=== PATIENT | female | born 2000 | race Caucasian/White ===

== ENCOUNTER 2024-03-12 16:57 | Emergency (ER) | payer MEDICAID, SELFPAY ==
--- NOTE | ~2024-03-12 | US_ITS ---
CLINICAL HISTORY: RUQ pain, GB, CBD U/S abdomen limited Comparison: None Findings: Normal gallbladder with no stones or gallbladder wall thickening. No intrahepatic bile duct dilatation. Common bile duct 2 mm. Impression: 1. Normal gallbladder without bile duct dilatation. This document has been electronically signed by: Rickey Huston MD on 03/13/2024 00:54:48
[2024-03-12 17:11] VITALS: BP 108/62; PULSE 88; RESP 16; TEMP 36.3; O2SAT 97; BMI 25.3
--- NOTE | 2024-03-12 17:13 | ED_ITS ---
HPI - General Adult General Chief complaint: General Medical Stated complaint: N/V/D Time Seen by Provider: 03/12/24 20:23 Source: patient Limitations: language barrier History of Present Illness ED Provider: Linda Silva PA-C HPI narrative: 23-year-old female presents with nausea vomiting diarrhea since earlier today. Associated abdominal discomfort that is primarily on the right side. Patient states when she eats, it causes her to become nauseous and she vomits. No sick contacts with same symptoms. No fever. Related Data Previous Rx's ?Medication ?Instructions ?Recorded dicyclomine 20 mg tablet 20 mg PO BID PRN diarrhea #7 tabs 03/13/24 ondansetron HCl 4 mg tablet 4 mg PO Q8H PRN nausea and 03/13/24 vomiting #10 tabs Allergies Allergy/AdvReac Type Severity Reaction Status Date / Time No Known Allergies Allergy Verified 03/12/24 17:14 Review of Systems 2 Review of Systems: Yes all other systems are reviewed and are negative Constitutional: Constitutional: Denies fatigue and Denies fever(s) Cardiovascular: Cardiovascular: Denies chest pain and Denies dyspnea Respiratory: Respiratory: Denies cough and Denies dyspnea Gastrointestinal: Gastrointestinal: Reports abdominal pain, Reports diarrhea, Reports nausea and Reports vomiting Endocrine: Endocrine: Denies fatigue PMF Past Medical History Attestation statement: The following information was validated with the patient. Social History Social History Advance Directives: No Advance Directives Information Provided: No Physical Exam ED Vital Signs: Vital Signs - 24 hr 03/12/24 17:11 03/12/24 22:08 Temperature 97.3 F 97.8 F Pulse Rate 88 77 Respiratory Rate 16 18 Blood Pressure 108/62 93/55 L Pulse Oximetry 97 100 Oxygen Delivery Method Room Air Room Air BMI result Body Mass Index 25.3 Const Other: Alert Orientation/consciousness: patient oriented x3 Resp Effort & Inspection: normal respiratory effort Cardio Other: Normal peripheral perfusion GI Other: Abdomen is soft, nondistended, mild tenderness over right side of abdomen without guarding Skin Other: Warm dry no rash Neuro General: patient oriented x3, gait normal, no focal motor deficits and CN's II- XI intact bilaterally Psych Other: Cooperative Course Course Course Narrative: RME, this is a rapid medical exam performed by Chidi Pitt please refer to primary provider for complete H&P- 23-year-old female presents for evaluation abdominal pain, nausea vomiting and fevers. The patient's daughter has similar symptoms. Plan for viral swabs Medications Administered Discontinued Medications Generic Name Dose Route Start Last Admin Trade Name Hernan PRN Reason Stop Dose Admin Sodium Chloride 500 mls @ 500 mls/hr 03/12/24 21:28 03/12/24 23:22 Ns IV 03/12/24 22:27 Infused .Q1H ONE Infusion Morphine Sulfate 4 mg 03/12/24 21:28 03/12/24 21:41 Morphine Sulfate 4 Mg/Ml Cartridge IVPUSH 03/12/24 21:29 4 mg ONCE ONE Administration Protocol Morphine Sulfate 4 mg 03/13/24 00:30 03/13/24 00:45 Morphine Sulfate 4 Mg/Ml Cartridge IVPUSH 03/13/24 00:31 4 mg ONCE ONE Administration Protocol Ondansetron HCl 4 mg 03/12/24 21:28 03/12/24 21:41 Ondansetron Hcl 4 Mg/2 Ml Vial IVPUSH 03/12/24 21:29 4 mg ONCE ONE Administration Medical Decision Making Medical Decision Making MDM Narrative: 23-year-old female presents with nausea vomiting diarrhea since earlier today. Associated abdominal discomfort that is primarily on the right side. Patient states when she eats, it causes her to become nauseous and she vomits. No sick contacts with same symptoms. No fever. Denies recent hospitalization, travel or use of antibiotics. No known issues History: Per patient I have considered the following differential diagnoses: Biliary colic, cholecystitis, gastritis, pancreatitis, viral gastroenteritis , C diff, traveler's diarrhea Plan: This is likely viral gastroenteritis given such illness has been prevalent within the community. However, she is having abdominal discomfort that is primarily right-sided. Given postprandial symptoms, I am considering underlying biliary pathology, and her LFTs are elevated. We will be obtaining an ultrasound of the right upper quadrant. Giving fluid morphine and Zofran. Patient has no risk factors for C diff or traveler's diarrhea I have independently reviewed the following tests: Labs: No leukocytosis, not anemic, T bili normal, AST ALT and alk phos are all elevated, not , viral panel negative Ultrasound right upper quadrant:Findings: Normal gallbladder with no stones or gallbladder wall thickening. No intrahepatic bile duct dilatation. Common bile duct 2 mm. Impression: 1. Normal gallbladder without bile duct dilatation. This document has been electronically signed by: Rickey Huston MD on 03/13/2024 00:54:48 Lab Data 03/12/24 18:33 03/12/24 18:33 Labs: Lab Results 03/12/24 03/12/24 Range/Units 17:20 18:33 WBC 7.0 (4.8-10.8) X10*3/uL RBC 4.63 (4.20-5.50) X10*6/uL Hgb 12.9 (12.0-16.0) g/dl Hct 39.5 (37.0-47.0) % MCV 85.3 (80.0-98.0) fL MCH 27.9 (27.0-33.0) pg MCHC 32.7 (31.0-35.0) g/dl RDW 13.4 (11.0-16.0) % Plt Count 220 (160-400) X10*3/uL MPV 10.6 (9.4-12.3) fL Immature Gran % (Auto) Cancelled Neut % (Auto) Cancelled Lymph % (Auto) Cancelled [place] % (Auto) Cancelled Eos % (Auto) Cancelled Baso % (Auto) Cancelled Lymph # (Auto) Cancelled [place] # (Auto) Cancelled Eos # (Auto) Cancelled Baso # (Auto) Cancelled Abs Immat Gran (auto) Cancelled Absolute Neuts (auto) Cancelled Absolute Nucleated RBC 0.000 (0.0-0.012) X10*3/uL Nucleated RBC % (auto) 0.0 (0.0-0.2) /100WBC Neutrophils % (Manual) 57 (45-73) % Band Neutrophils % 5 (3-5) % Lymphocytes % (Manual) 18 L (20-40) % Atypical Lymphs % (Man) 8 H (0-6) % Monocytes % (Manual) 10 (2-11) % Eosinophils % (Manual) 1 (0-4) % Basophils % (Manual) 1 (0-2) % Abs Neuts (Manual) 4.3 (2.0-8.3) X10*3/uL Lymphocytes # (Manual) 1.3 (1.2-4.9) X10*3/uL Atyp Lymphs # (Manual) 0.6 x10*3/uL Monocytes # (Manual) 0.7 (0.1-1.2) X10*3/uL Eosinophils # (Manual) 0.1 (0.0-0.4) X10*3/uL Basophils # (Manual) 0.1 (0.0-0.2) X10*3/uL [place] Cells PRESENT Platelet Estimate NORMAL (NORMAL) Plt Morphology Comment NORMAL RBC Morphology NOTED Smear Tech's Comments MANUAL DIFF Sodium 138 (135-145) mmol/L Potassium 4.5 (3.3-5.1) mmol/L Chloride 105 (96-108) mmol/L Carbon Dioxide 26 (22-29) mmol/L Anion Gap 12 (12-20) BUN 14 (9-16) mg/dL Creatinine 0.69 (0.5-1.4) mg/dL Estim Creat Clear Calc 114.7 Estimated GFR > 60 Random Glucose 107 (60-115) mg/dL Calcium 9.4 (8.4-10.2) mg/dL Total Bilirubin 0.5 (0.0-1.0) mg/dL AST 211 H (5-31) U/L ALT 308 H (0-31) U/L Alkaline Phosphatase 130 H (39-117) U/L Total Protein 8.6 H (6.5-8.0) g/dL Albumin 4.2 (3.5-5.0) g/dL Lipase 34 (8-78) U/L Beta HCG, Quant < 2 mIU/mL Urine Color Dark Yellow Urine Appearance Clear Urine pH >= 9.0 (5.0-9.0) Ur Specific [place] >= 1.030 H (1.005-1.025) Urine Protein 100 (2+) H (Neg-Trace) mg/dL Urine Glucose (UA) Negative (Negative) mg/dL Urine Ketones Negative (Negative) mg/dL Urine Blood Negative (Negative) Urine Nitrite Negative (Negative) Ur Leukocyte Esterase Negative (Negative) Urine RBC 0-2 (0-2) /HPF Urine WBC 0-5 (0-5) /HPF Ur Squamous Epith Cells 11-20 (0-2) /HPF Urine Bacteria 1+ (None Seen) Hyaline Casts 0-2 (0-2) /LPF Influenza Type A (PCR) NEGATIVE (Negative) Influenza Type B (PCR) NEGATIVE (Negative) RSV RNA Qual (PCR) NEGATIVE (Negative) SARS-CoV-2 RNA (RT-PCR) NEGATIVE (Negative) Discharge Plan Discharge Clinical Impression: Gastroenteritis, Transaminitis Patient Disposition: Home, Self-Care Instructions: Gastroenteritis (ED) Additional Instructions: You are being treated for viral gastroenteritis. See home care instructions. Uses Zofran as needed for nausea, use the dicyclomine as needed for diarrhea. The ultrasound of the abdomen was normal. The viral panel was negative, you were noted to have some elevation and some a your liver function tests. You need to follow up with your primary care provider for repeat labs, they could be elevated secondary to the virus that is causing your symptoms. Call tomorrow to make an appointment. Prescriptions: New ondansetron HCl 4 mg tablet 4 mg PO Q8H PRN (Reason: nausea and vomiting) Qty: 10 0RF dicyclomine 20 mg tablet 20 mg PO BID PRN (Reason: diarrhea) Qty: 7 0RF Print Language: Czech
[2024-03-12 18:03] LABS: Influenza A PCR NEGATIVE (Negative); Influenza B PCR NEGATIVE (Negative); Resp Syncy Virus RNA Qual PCR NEGATIVE (Negative); SARS COV2 PCR INHOUSE NEGATIVE (Negative)
[2024-03-12 18:41] LABS: Appearance Urine Clear; Color Urine Dark Yellow; Glucose Urine UA Negative (Negative); Hematocrit 39.5 % (37.0-47.0); Hemoglobin 12.9 g/dl (12.0-16.0); Leukocyte Esterase Urine Negative (Negative); Mean Corpuscular HGB Conc 32.7 g/dl (31.0-35.0); Mean Corpuscular Hemoglobin 27.9 pg (27.0-33.0); Mean Corpuscular Volume 85.3 fL (80.0-98.0); Mean Platelet Volume 10.6 fL (9.4-12.3); Nitrite Urine Negative (Negative); PH >= 9.0 (5.0-9.0); Platelet Count 220 X10*3/uL (160-400); Red Blood Count 4.63 X10*6/uL (4.20-5.50); Red Cell Distribution Width 13.4 % (11.0-16.0); Specific Gravity - Urine >= 1.030 (1.005-1.025); UMIC TRIGGER UACC YES; Urine Blood Negative (Negative); Urine Ketones Negative (Negative); Urine Protein 100 (2+) mg/dL (Neg-Trace)
[2024-03-12 18:44] LABS: Bacteria Urine 1+ (None Seen); Hyaline Casts Urine 0-2 /LPF (0-2); RBC Urine 0-2 /HPF (0-2); WBC Urine 0-5 /HPF (0-5)
[2024-03-12 19:05] LABS: SLIDE REVIEW MANUAL DIFF
[2024-03-12 19:06] LABS: Atypical Lymph Absolute Manual 0.6 x10*3/uL; Atypical Lymphs Percent Manual 8 % (0-6); Band Neutrophils Percent 5 % (3-5); Basophils Abs Manual 0.1 X10*3/uL (0.0-0.2); Basophils Percent Manual 1 % (0-2); Eosinophils Absolute Manual 0.1 X10*3/uL (0.0-0.4); Eosinophils Percent Manual 1 % (0-4); Lymphocytes Absolute Manual 1.3 X10*3/uL (1.2-4.9); Lymphocytes Percent Manual 18 % (20-40); Monocytes Absolute Manual 0.7 X10*3/uL (0.1-1.2); Monocytes Percent Manual 10 % (2-11); Neutrophils Absolute Manual 4.3 X10*3/uL (2.0-8.3); Neutrophils Percent Manual 57 % (45-73); RBC Morphology NOTED
[2024-03-12 19:07] LABS: Platelet Estimate NORMAL (NORMAL); Platelet Morphology Comment NORMAL; Smudge Cells PRESENT
[2024-03-12 19:20] LABS: Alanine Aminotransferase 308 U/L (0-31); Albumin Level 4.2 g/dL (3.5-5.0); Alkaline Phosphatase 130 U/L (39-117); Anion Gap 12 (12-20); Aspartate Amino Transferase 211 U/L (5-31); Bilirubin Total 0.5 mg/dL (0.0-1.0); Blood Urea Nitrogen 14 mg/dL (9-16); Calcium 9.4 mg/dL (8.4-10.2); Carbon Dioxide 26 mmol/L (22-29); Chloride 105 mmol/L (96-108); Creatinine Clr Calc Pharmacy 114.7; Estimated Glomerular Filt Rate > 60; Glucose Random 107 mg/dL (60-115); HCG Quantitative < 2 mIU/mL; Lipase 34 U/L (8-78); Potassium 4.5 mmol/L (3.3-5.1); Sodium 138 mmol/L (135-145); Total Protein 8.6 g/dL (6.5-8.0)
[2024-03-12] MEDS: ondansetron HCL 4 MG/2 ML VIAL IVPUSH (21:41)
[2024-03-12] MEDS: Morphine Sulfate 4 MG/ML CARTRIDGE IVPUSH (21:41)
[2024-03-12] MEDS: 0.9 % Sodium Chloride 500 ML IV (21:45)
[2024-03-12 22:08] VITALS: BP 93/55; PULSE 77; RESP 18; TEMP 36.6; O2SAT 100
[2024-03-13] MEDS: Morphine Sulfate 4 MG/ML CARTRIDGE IVPUSH (00:45)
--- NOTE | 2024-03-13 01:42 | PC.NURSE ---
Took over care from JUDY Cerda at 00:54am, Reviewed discharge instructions with pt. pt verbalized understanding, no sign of distress upon discharge.
[2024-03-13 01:43] VITALS: BP 99/60; PULSE 59; RESP 20; TEMP 37; O2SAT 99
[2024-03-13 01:44] VITALS: BP 99/60; PULSE 59; RESP 20; TEMP 37; O2SAT 99
== END 2024-03-13 01:45 | disposition home or self-care (01) ==
PROVIDERS: Physician Assistant; Emergency Provider Emergency Medicine
DX: K52.9 Noninfective gastroenteritis and colitis, unspecified (principal); R74.01 Elevation of levels of liver transaminase levels; R11.2 Nausea with vomiting, unspecified; R10.9 Unspecified abdominal pain; Z03.818 Encounter for observation for suspected exposure to other biological agents ruled out
CPT/HCPCS: 0241U; 36415; 76705; 80053; 81001; 83690; 84702; 85007; 85025; 85027; 96361; 96374; 96375; 96376; 99284; J2270; J2405

== ENCOUNTER → 2024-03-12 21:28 | Outpatient (BNV) | payer MEDICAID, SELFPAY | PROVIDERS: Emergency Provider Emergency Medicine; Visit Provider Radiology Diagnostic Radiology | DX: R10.11 Right upper quadrant pain (principal) | CPT/HCPCS: 76705 ==

== ENCOUNTER 2024-04-09 15:10 | Emergency (ER) | payer MEDICAID, SELFPAY ==
--- NOTE | ~2024-04-09 | XR_ITS ---
CLINICAL HISTORY: pain 1 view abdomen Comparison: None Findings: No pneumoperitoneum or pneumatosis. No abnormal calcifications. No acute fractures. IMPRESSION: The bowel gas pattern is within normal limits This document has been electronically signed by: Dae Gonzalez MD on 04/09/2024 18:07:54
[2024-04-09 15:52] VITALS: BP 121/81; BP 124/85; PULSE 62; PULSE 66; RESP 19; TEMP 36.8; O2SAT 98; O2SAT 99; BMI 24.4
[2024-04-09 16:34] LABS: MANUAL DIFF FLAG NO
[2024-04-09 16:35] LABS: Basophils Percent Auto 0.5 % (0-2); Eosinophils Percent Auto 0.5 % (0-4); Hematocrit 39.8 % (37.0-47.0); Hemoglobin 13.6 g/dl (12.0-16.0); Imm Gran Abs Auto 0.03 X10*3/uL (0.00-0.03); Imm Gran Pct Auto 0.4 % (0.0-0.4); Lymphocytes Absolute Auto 1.3 X10*3/uL (1.2-4.9); Lymphocytes Percent Auto 17.1 % (20-40); Mean Corpuscular HGB Conc 34.2 g/dl (31.0-35.0); Mean Corpuscular Hemoglobin 28.5 pg (27.0-33.0); Mean Corpuscular Volume 83.3 fL (80.0-98.0); Mean Platelet Volume 9.9 fL (9.4-12.3); Monocytes Absolute Auto 0.6 X10*3/uL (0.1-1.2); Monocytes Percent Auto 7.2 % (2-11); Neutrophils Absolute Auto 5.6 x10*3/uL (2.0-8.3); Neutrophils Percent Auto 74.3 % (45-73); Platelet Count 243 X10*3/uL (160-400); Red Blood Count 4.78 X10*6/uL (4.20-5.50); Red Cell Distribution Width 12.7 % (11.0-16.0); White Blood Count 7.6 X10*3/uL (4.8-10.8)
[2024-04-09] MEDS: 0.9 % Sodium Chloride 1,000 ML 999 ML IV (16:35)
[2024-04-09] MEDS: ondansetron HCL 4 MG/2 ML VIAL IVPUSH ×2 (16:35→19:22)
[2024-04-09 16:43] LABS: Appearance Urine Clear; Color Urine Yellow; Glucose Urine UA Negative (Negative); Leukocyte Esterase Urine Negative (Negative); Nitrite Urine Negative (Negative); PH >= 9.0 (5.0-9.0); Specific Gravity - Urine 1.025 (1.005-1.025); UMIC TRIGGER UACC YES; Urine Blood Negative (Negative); Urine Ketones 15 mg/dL (Negative); Urine Protein 30 (1+) mg/dL (Neg-Trace)
[2024-04-09 16:46] LABS: Bacteria Urine None Seen (None Seen); Hyaline Casts Urine 0-2 /LPF (0-2); RBC Urine 0-2 /HPF (0-2); Squamous Epithelial Cell Urine 0-2 /HPF (0-2); WBC Urine 0-5 /HPF (0-5)
[2024-04-09 16:47] LABS: Anion Gap 13 (12-20); Blood Urea Nitrogen 10 mg/dL (9-16); Calcium 9.7 mg/dL (8.4-10.2); Carbon Dioxide 26 mmol/L (22-29); Chloride 103 mmol/L (96-108); Creatinine Clr Calc Pharmacy 100.5; Estimated Glomerular Filt Rate > 60; Glucose Fasting 105 mg/dL (60-99); Potassium 4.2 mmol/L (3.3-5.1); Sodium 138 mmol/L (135-145)
[2024-04-09 17:48] VITALS: BP 122/80; PULSE 69; RESP 19; TEMP 37.1; O2SAT 99
[2024-04-09 17:48] LABS: HCG Quantitative < 2 mIU/mL
[2024-04-09] MEDS: Ketorolac Tromethamine 15 MG/ML VIAL IVPUSH (18:12)
[2024-04-09 18:13] LABS: Influenza A PCR NEGATIVE (Negative); Influenza B PCR NEGATIVE (Negative); Resp Syncy Virus RNA Qual PCR NEGATIVE (Negative); SARS COV2 PCR INHOUSE NEGATIVE (Negative)
--- NOTE | 2024-04-09 18:23 | PC.NURSE ---
Pt has had no vomiting at this time; reports 10/10 upper abd pain; Toradol gv per orders; will reassess per protocol/PRN
--- OUTSIDE RECORDS SUMMARY | 2024-04-09 19:17 | XMS_ITS | Encounter Summary ---
Author Organization [employer] Address [address] [facility] 7 [place] [address] Care Team Providers Care Crutching Contractor Name Role Phone Unavailable Primary Care Provider Unavailabl e Reason for Visit * Reason Onset Date Comments chartprep 04/09/2024 Encounter Details Date Type Department Care Team (Late st Contact Info) Description 04/09/2024 Telephone [facility] MED [facility] PEDS [address] [place] [address] Tiffani Lopez MA chartprep Social History Tobacco Use Types Packs/Day Years Used Date Smoking Tobacco: Never Assessed Comments Unknown Sex and Gender Information Value Date Recorded Sex Assigned at Not on file Legal Sex Female 4:38 PM EDT Gender Identity Not on file Sexual Orientation Not on file documented as of this encounter Miscellaneous Notes * Telephone Encounter - Tiffani Lopez MA - 04/09/2024 10:30 AM EST Chart Prep Labs: not applicable Images: done Vaccines due: yes Covid, tdap, hep b, flu, and hpv. Referrals: n/a Screenings: pap smear , STI screening, hiv Overdue care gaps: Sbirt, SDOH, PHQ-9, Oral Health, LEAH-7 documented in this encounter Plan of Treatment Upcoming Encounters Date Type Department Care Team (Late st Contact Info) Description 04/15/2024 2:00 PM EST Office Visit [facility] MEDICINE [address] [place] [address] Melba Tamayo NP [address] [place] [address] documented as of this encounter Visit Diagnoses Not on filedocumented in this encounter
--- OUTSIDE RECORDS SUMMARY | 2024-04-09 19:17 | XMS_ITS | Encounter Summary ---
Author Organization [employer] Address [address] [facility] 7 [place] [address] Care Team Providers Care Job Training Supervisor Name Role Phone Unavailable Primary Care Provider Unavailabl e Reason for Visit * Reason Comments Pre-visit Planning SDOH will need to be completed in office. Encounter Details Date Type Department Care Team (Late Contact Info) Description 04/08/2024 Patient Outreach [facility] MED & PEDS [address] [place], [place] [id number] Melba Tamayo NP [address] [place] [address] Pre-visit Planning (SDOH will need to be completed in office. ) Social History Tobacco Use Types Packs/Day Years Used Date Smoking Tobacco: Never Assessed Comments Unknown Sex and Gender Information Value Date Recorded Sex Assigned at Not on file Legal Sex Female 4:38 PM EDT Gender Identity Not on file Sexual Orientation Not on file documented as of this encounter Progress Notes * Nadja Jean-Baptiste - 04/08/2024 2:43 PM EST CC [address] placed successful outbound call to patient for pre-visit planning. Patient name and confirmed. Patient confirms appt date and time, and has transportation arrangements. Biggest concern for appointment at this time is no concerns. Appropriate screenings completed in anticipation ofappointment. documented in this encounter Plan of Treatment Upcoming Encounters Date Type Department Care Team ([facility] Contact Info) Description 04/15/2024 2:00 PM EST Office Visit [facility] MEDICINE [address] [place] [address] Melba Tamayo NP [address] [place] [address] documented as of this encounter Visit Diagnoses Not on filedocumented in this encounter
--- OUTSIDE RECORDS SUMMARY | 2024-04-09 19:17 | XMS_ITS | Clinical Summary ---
Author Organization [employer] Address [address] [facility] [address] [place] [address] Care Team Providers Care Motor Tester Name Role Phone Unavailable Primary Care Provider Unavailabl e Encounters Date Type Department Care Team Description 04/09/2024 Telephone [facility] MED & PEDS [address] [place] [address] Tiffani Lopez [place] chartprep 04/08/2024 Patient Outreach [facility] MED & PEDS [address] [place] [address] Melba Tamayo NP Pre-visit Planning (SDOH will need to be completed in office. ) 03/12/2024 Orders Only [facility] External Provider, [facility] 02/13/2024 Telephone [facility] MEDICINE [address] [place] [id number] Konrad Walker MD New patient appt. from Last 3 Months Social History Tobacco Use Types Packs/Day Years Used Date Smoking Tobacco: Never Assessed Comments Unknown Sex and Gender Information Value Date Recorded Sex Assigned at Not on file Legal Sex Female 4:38 PM EDT Gender Identity Not on file Sexual Orientation Not on file Plan of Treatment Upcoming Encounters Date Type Department Care Team (Late st Contact Info) Description 04/15/2024 2:00 PM EST Office Visit [facility] MEDICINE [address] [place] [address] Melba Tamayo NP [address] [place] [address] Health Maintenance Due Date Last Done Comments Chlamydia and Gonorrhea Screening 2000 Depression Screening 2000 HIV Screening 2000 SDOH Screening 2000 Alcohol/Substance Use Screening 2012 Tobacco Screening 2012 Family Planning (PISQ) 04/26/2015 HPV Vaccines (1 - 3-dose series) 04/26/2015 Hepatitis C Screening 2018 DTaP/Tdap/Td Vaccines (1 - Tdap) 04/26/2019 Hepatitis B Vaccines (1 of 3 - 19+ 3-dose series) 04/26/2019 Pap Smear 2021 COVID-19 Vaccine (1 - 2023-2 5 season) 2023 Influenza Vaccine (#1) 2023 Zoster Vaccines (1 of 2) 2050 RSV Patients and Pa tients Aged 60 years or older (1 - 1-dose 75+ series) 04/26/2075 HIB Vaccines Aged Out No longer eligi ble based on patient's age to complete this topic Hepatitis A Vaccines Aged Out No long er eligible based on patient's age to complete this topic IPV Vaccines Aged Out No longer eligi ble based on patient's age to complete this topic Meningococcal Vaccine Aged Out No jose armando rosamaria eligible based on patient's age to complete this topic Pneumococcal Vaccine: Pediat rics (0 to 5 Years) and At-Risk Patients (6 to 49) Years) Aged Out No longer eligible b ased on patient's age to complete this topic RSV under 20 months Aged Out No longe r eligible based on patient's age to complete this topic Rotavirus Vaccines Aged Out No longer eligible based on patient's age to complete this topic Procedures Procedure Name Priority Date/Time Associated Diagnosis Comments US ABDOMEN LIMITED Routine 03/13/2024 12 :54 AM EST from Last 3 Months Results * US Abdomen Limited (03/13/2024 12:54 AM EST) Anatomical Region Laterality Modality Abdomen Ultrasound 03/13/2024 12:5 4 AM EST Narrative 03/13/2024 12:56 AM EST ? [facility] ?[address] ?[place] [address] ? Ultrasound Report ? Signed ? Patient: Lopez Aponte,Thanairi ?MR#: ?? [id number] ? : 2000 ?Acct:[id number] ? Age/Sex: 23 / F ?ADM Date: 01/30/25 ? Loc: HO.ED ? Attending Dr: ? Ordering Physician: Linda Silva ?? Date of Service: 03/12/24 ?? Procedure(s): US abdomen limited ?? Accession Number(s): [id number] ? cc: Linda Silva; [facility] ? CLINICAL HISTORY: RUQ pain, ??GB, CBD ? U/S abdomen limited ? Comparison: None ? Findings: ?? Normal gallbladder with no stones or gallbladder wall thickening. ?? No intrahepatic bile duct dilatation. Common bile duct 2 mm. ? Impression: ?? 1. Normal gallbladder without bile duct dilatation. ? This document has been electronically signed by: Rickey Huston, ?? on 03/13/2024 00:54:48 ? Dictated By: ?Rickey Huston MD ? Signed By: ?<Electronically signed by Rickey Huston MD in OV> ?03/13/24 0056 ? DD/ 0054 ? TD/TT: 03/13/24 005 ? Leisure Studies Professor: ? Procedure Note Donotuseinterpreter, Image - 03/13/2024 [place] [id number] Ultrasound Report Signed Patient: Kelvin Flower#: [id number] : 2000Acct:[id number] Age/Sex: 23 FADM Date: 03/12/24 Loc: HO.ED Attending Dr: Ordering Physician: Linda Silva Date of Service: 03/12/24 Procedure(s): US abdomen limited Accession Number(s): [id number] cc: Linda Silva; [facility] CLINICAL HISTORY: RUQ pain, GB, CBD U/S abdomen limited Comparison: None Findings: Normal gallbladder with no stones or gallbladder wall thickening. No intrahepatic bile duct dilatation. Common bile duct 2 mm. Impression: 1. Normal gallbladder without bile duct dilatation. This document has been electronically signed by: Rickey Huston MD on 03/13/2024 00:54:48 Dictated By: Rickey Huston MD Signed By: <Electronically signed by Rickey Huston MD in OV> 03/13/24 0056 DD/ TD/TT: 03/13/2453 Leisure Studies Professor: [facility] External Provider IMG US PROCEDURES Edited Result - Final from Last 3 Months Insurance [facility] C3
--- OUTSIDE RECORDS SUMMARY | 2024-04-09 19:17 | XMS_ITS | Encounter Summary ---
Author Organization [employer] Address [address] [place] [address] [place] [address] Care Team Providers Care Cost Accounting Manager Name Role Phone Unavailable Primary Care Provider Unavailabl e Encounter Details Date Type Department Care Team (Late Contact Info) Description 03/12/2024 Orders Only [facility] External Provider, [facility] Social History Tobacco Use Types Packs/Day Years Used Date Smoking Tobacco: Never Assessed Comments Unknown Sex and Gender Information Value Date Recorded Sex Assigned at Not on file Legal Sex Female 4:38 PM EDT Gender Identity Not on file Sexual Orientation Not on file documented as of this encounter Plan of Treatment Upcoming Encounters Date Type Department Care Team (Late Contact Info) Description 04/15/2024 2:00 PM EST Office Visit [facility] MEDICINE [address] [place] [address] Melba Tamayo NP [address] [place] [address] documented as of this encounter Procedures Procedure Name Priority Date/Time Associated Diagnosis Comments US ABDOMEN LIMITED Routine 03/13/2024 12 :54 AM EST documented in this encounter Results * US Abdomen Limited (03/13/2024 12:54 AM EST) Anatomical Region Laterality Modality Abdomen Ultrasound 03/13/2024 12:5 4 AM EST Narrative 03/13/2024 12:56 AM EST ? [facility] ?[address] ?[place] [address] ? Ultrasound Report ? Signed ? Patient: Lopez Aponte,Thani ?MR#: ?? [id number] ? : 2000 ?Acct:[id number] ? Age/Sex: 23 / F ?ADM Date: 01/30/25 ? Loc: HO.ED ? Attending Dr: ? Ordering Physician: Linda Silva ?? Date of Service: 03/12/24 ?? Procedure(s): US abdomen limited ?? Accession Number(s): [id number] ? cc: Linda Silva; [facility] ? CLINICAL HISTORY: RUQ pain, ??GB, CBD [...] signed by Rickey Huston MD in OV> ?03/13/246 ? DD/ ? TD/TT: 03/13/2453 ? Nurse Instructor: ? Procedure Note Donotuseinterpreter, Image - 03/13/2024 [place] [id number] Ultrasound Report Signed Patient: Kelvin Flower#: [id number] : 2000Acct:[id number] Age/Sex: Date: 03/12/24 Loc: HO.ED Attending Dr: Ordering Physician: Linda Silva Date of Service: 03/12/24 Procedure(s): US abdomen limited Accession Number(s): [id number] cc: Linda Silva; [facility] CLINICAL HISTORY: RUQ pain, GB, CBD U/S [...] signed by Rickey Huston MD in OV> 03/13/246 DD/ TD/TT: 03/13/2453 Nurse Instructor: [facility] External Provider IMG US PROCEDURES Edited Result - Final documented in this encounter Visit Diagnoses Not on filedocumented in this encounter
--- NOTE | 2024-04-09 19:25 | PC.NURSE ---
medicated per mar, notified primary nurse Zac
--- NOTE | 2024-04-09 19:35 | ED_ITS ---
HPI - General Adult General Chief complaint: Abdominal Pain Stated complaint: SICK X5D ON/OFF,ABD PAIN,VOMITTING,CONSTIPATION Time Seen by Provider: 04/09/24 17:08 Source: patient and family Limitations: language barrier History of Present Illness ED Provider: Linda Silva PA-C HPI narrative: 23-year-old female presents with the abdominal pain x5 days. Pain is generalized within the abdomen, unable to describe the nature of her discomfort. Associated nausea vomiting, constipation. Patient has been straining, she has bright red blood per rectum she has a bowel movement. Denies distention, or inability to pass flatus. No fever. Related Data Previous Rx's ?Medication ?Instructions ?Recorded dicyclomine 20 mg tablet 20 mg PO BID PRN diarrhea #7 tabs 03/13/24 ondansetron HCl 4 mg tablet 4 mg PO Q8H PRN nausea and 03/13/24 vomiting #10 tabs ondansetron HCl 4 mg tablet 4 mg PO Q8H PRN nausea and 04/09/24 vomiting #10 tabs Allergies Allergy/AdvReac Type Severity Reaction Status Date / Time No Known Allergies Allergy Verified 04/09/24 15:54 Review of Systems 2 Review of Systems: Yes all other systems are reviewed and are negative Constitutional: Constitutional: Denies fatigue and Denies fever(s) Cardiovascular: Cardiovascular: Denies chest pain and Denies dyspnea Respiratory: Respiratory: Denies cough and Denies dyspnea Gastrointestinal: Gastrointestinal: Reports abdominal pain, Reports constipation, Denies diarrhea, Reports nausea and Reports vomiting Endocrine: Endocrine: Denies fatigue PMF Past Medical History Attestation statement: The following information was validated with the patient. Social History Social History Smoked in Last 30 Days: Yes Use of substances other than those prescribed or required for medical reasons: No Advance Directives: No Advance Directives Information Provided: Yes Do you have a plan to hurt others: No Plan Patient : No Physical Exam ED Vital Signs: Vital Signs - 24 hr 04/09/24 15:52 04/09/24 17:48 Temperature 98.2 F 98.8 F Pulse Rate 66 69 Respiratory Rate 19 19 Blood Pressure 124/85 122/80 Pulse Oximetry 99 99 Oxygen Delivery Method Room Air Room Air BMI result Body Mass Index 24.4 Const Other: Alert Orientation/consciousness: patient oriented x3 Resp Effort & Inspection: normal respiratory effort Cardio Other: Normal peripheral perfusion GI Other: Abdomen is soft, nontender no guarding no distention Skin Other: Warm dry no rash Neuro General: patient oriented x3, no focal motor deficits and CN's II-XI intact bilaterally Psych Other: Cooperative Medications Administered Discontinued Medications Generic Name Dose Route Start Last Admin Trade Name Hernan PRN Reason Stop Dose Admin Sodium Chloride 1,000 mls @ 999 mls/hr 04/09/24 16:30 04/09/24 18:08 Ns IV 04/09/24 17:30 Infused .Q1H1M LAURENCE Infusion Ketorolac Tromethamine 15 mg 04/09/24 18:00 04/09/24 18:12 Ketorolac Tromethamine 15 Mg/Ml Vial IVPUSH 04/09/24 18:01 15 mg ONCE ONE Administration Ondansetron HCl 4 mg 04/09/24 16:27 04/09/24 16:35 Ondansetron Hcl 4 Mg/2 Ml Vial IVPUSH 04/09/24 16:28 4 mg ONCE ONE Administration Ondansetron HCl 4 mg 04/09/24 19:17 04/09/24 19:22 Ondansetron Hcl 4 Mg/2 Ml Vial IVPUSH 04/09/24 19:18 4 mg ONCE ONE Administration Medical Decision Making Medical Decision Making MDM Narrative: 23-year-old female presents with the abdominal pain x5 days. Pain is generalized within the abdomen, unable to describe the nature of her discomfort. Associated nausea vomiting, constipation. Patient has been straining, she has bright red blood per rectum she has a bowel movement. Denies distention, or inability to pass flatus. No fever. No chronic issues History: Per patient I have considered the following differential diagnoses: Constipation, bowel obstruction, fecal impaction, lower GI bleed, viral syndrome Plan: Screening labs were obtained from triage they are unremarkable. Thought about viral syndrome, however this would not account for the constipation, we will add a viral panel. I believe her nausea vomiting is likely secondary to her constipation. To note she has no distention she is passing flatus, there was nothing to suggest a bowel obstruction, we will obtain a KUB to assess stool burden. Doubtful to have a fecal impaction given she is passing stool. I have independently reviewed the following tests: Labs: No leukocytosis, not anemic, no electrolyte abnormality, viral panel negative KUB:Findings: No pneumoperitoneum or pneumatosis. No abnormal calcifications. No acute fractures. IMPRESSION: The bowel gas pattern is within normal limits This document has been electronically signed by: Dae Gonzalez MD on 04/09/2024 18:07:54 Lab Data 04/09/24 16:24 04/09/24 16:24 Labs: Lab Results 04/09/24 04/09/24 04/09/24 Range/Units 16:24 16:33 17:32 WBC 7.6 (4.8-10.8) X10*3/uL RBC 4.78 (4.20-5.50) X10*6/uL Hgb 13.6 (12.0-16.0) g/dl Hct 39.8 (37.0-47.0) % MCV 83.3 (80.0-98.0) fL MCH 28.5 (27.0-33.0) pg MCHC 34.2 (31.0-35.0) g/dl RDW 12.7 (11.0-16.0) % Plt Count 243 (160-400) X10*3/uL MPV 9.9 (9.4-12.3) fL Immature Gran % (Auto) 0.4 (0.0-0.4) % Neut % (Auto) 74.3 H (45-73) % Lymph % (Auto) 17.1 L (20-40) % Spencer % (Auto) 7.2 (2-11) % Eos % (Auto) 0.5 (0-4) % Baso % (Auto) 0.5 (0-2) % Lymph # (Auto) 1.3 (1.2-4.9) X10*3/uL Spencer # (Auto) 0.6 (0.1-1.2) X10*3/uL Eos # (Auto) 0.0 (0.0-0.4) X10*3/uL Baso # (Auto) 0.0 (0.0-0.2) X10*3/uL Abs Immat Gran (auto) 0.03 (0.00-0.03) X10*3/uL Absolute Neuts (auto) 5.6 (2.0-8.3) x10*3/uL Absolute Nucleated RBC 0.000 (0.0-0.012) X10*3/uL Nucleated RBC % (auto) 0.0 (0.0-0.2) /100WBC Sodium 138 (135-145) mmol/L Potassium 4.2 (3.3-5.1) mmol/L Chloride 103 (96-108) mmol/L Carbon Dioxide 26 (22-29) mmol/L Anion Gap 13 (12-20) BUN 10 (9-16) mg/dL Creatinine 0.72 (0.5-1.4) mg/dL Estim Creat Clear Calc 100.5 Estimated GFR > 60 Fasting Glucose 105 H (60-99) mg/dL Calcium 9.7 (8.4-10.2) mg/dL Beta HCG, Quant < 2 mIU/mL Urine Color Yellow Urine Appearance Clear Urine pH >= 9.0 (5.0-9.0) Ur Specific Culver 1.025 (1.005-1.025) Urine Protein 30 (1+) H (Neg-Trace) mg/dL Urine Glucose (UA) Negative (Negative) mg/dL Urine Ketones 15 (Negative) mg/dL Urine Blood Negative (Negative) Urine Nitrite Negative (Negative) Ur Leukocyte Esterase Negative (Negative) Urine RBC 0-2 (0-2) /HPF Urine WBC 0-5 (0-5) /HPF Ur Squamous Epith Cells 0-2 (0-2) /HPF Urine Bacteria None Seen (None Seen) Hyaline Casts 0-2 (0-2) /LPF Influenza Type A (PCR) NEGATIVE (Negative) Influenza Type B (PCR) NEGATIVE (Negative) RSV RNA Qual (PCR) NEGATIVE (Negative) SARS-CoV-2 RNA (RT-PCR) NEGATIVE (Negative) Discharge Plan Discharge Clinical Impression: Constipation Patient Disposition: Home, Self-Care Instructions: Constipation (ED) Additional Instructions: All of your labs were normal the viral panel was negative. The x-ray shows you are constipated. See home care instructions. Use [id number]-kthfpjp Colace, this is a stool softener, 1 to 2 times a day. Use frgr-sfs-lfgilop MiraLax 1 to 3 times a day, as needed, until you begin having normal bowel movements. Follow up with primary care as needed. Use the Zofran as needed for nausea. Prescriptions: New ondansetron HCl 4 mg tablet 4 mg PO Q8H PRN (Reason: nausea and vomiting) Qty: 10 0RF No Action ondansetron HCl 4 mg tablet 4 mg PO Q8H PRN (Reason: nausea and vomiting) Qty: 10 0RF dicyclomine 20 mg tablet 20 mg PO BID PRN (Reason: diarrhea) Qty: 7 0RF Print Language: Telugu
[2024-04-09 20:00] VITALS: BP 114/76; PULSE 71; RESP 16; TEMP 36.6; O2SAT 98
--- NOTE | 2024-04-09 20:11 | PC.NURSE ---
Reviewed discharge instructions with pt, pt verbalized understanding, no sign of distress, pt able to ambulate with a steady gait, notified primary nurse Zac
[2024-04-09 20:16] VITALS: BP 114/76; PULSE 71; RESP 16; TEMP 36.6; O2SAT 98
== END 2024-04-09 20:17 | disposition home or self-care (01) ==
PROVIDERS: Physician Assistant Medical; Emergency Provider Emergency Medicine
DX: K59.00 Constipation, unspecified (principal); R11.2 Nausea with vomiting, unspecified; R10.9 Unspecified abdominal pain; Z03.818 Encounter for observation for suspected exposure to other biological agents ruled out
CPT/HCPCS: 0241U; 36415; 74018; 80048; 81001; 84702; 85025; 96361; 96374; 96375; 96376; 99284; 99285; J1885; J2405

== ENCOUNTER → 2024-04-09 17:29 | Outpatient (BNV) | payer MEDICAID, SELFPAY | PROVIDERS: Emergency Provider Emergency Medicine; Visit Provider Specialist | DX: R10.9 Unspecified abdominal pain (principal) | CPT/HCPCS: 74018 ==

== ENCOUNTER 2024-04-16 09:36 | Outpatient (REF) | payer MEDICAID, SELFPAY ==
--- OUTSIDE RECORDS SUMMARY | 2024-04-16 10:55 | XMS_ITS | Encounter Summary ---
Author Organization [facility] Address [address] [place] [address] Care Team Providers Care Rotary Helper Name Role Phone Melba Tamayo NP Primary Care Provider [phone] Reason for Referral * Consultation (Routine) - Authorized Specialty Diagnoses / Procedures Referred By Dolores fiore Referred To Contact Behavioral Health Diagnoses Anxiety Melba Tamayo NP [address] [place] [address] Phone: tel: fax: Referral ID Status Reason Start Date Expiration Date Visits Requested Visits Authorized [id number] Authorized Specialty Services Required 04/15/2024 04/15/2025 1 1 * Consultation (Routine) - Authorized Specialty Diagnoses / Procedures Referred By Dolores fiore Referred To Contact Optometry Diagnoses Encounter for health-related screening Melba Tamayo NP [address] [place] [address] Phone: tel: fax: [facility] OPTOMETRY [address] [place] [phone] Phone: tel: fax: Referral ID Status Reason Start Date Expiration Date Visits Requested Visits Authorized [id number] Authorized Consult and Treat 04/15/2024 04/15/2025 1 1 Encounter Details Date Type Department Care Team (Late st Contact Info) Description 04/15/2024 2:00 PM EST Office Visit [facility] MEDICINE [address] [place] [address] Melba Tamayo NP [address] [place] [address] Screening examination for STI (Primary Dx); Overweight (BMI 25.0-29.9); Encounter to establish care; Encounter for health-related screening; Anxiety Social History Tobacco Use Types Packs/Day Years Used Date Smoking Tobacco: Some Days Cigarettes 0.3 3.2 Started: 2021 Smokeless Tobacco: Never Alcohol Use Standard Drinks/Week Comments Never 0 (1 standard drink = 0.6 oz pur e alcohol) Alcohol Answer Date Recorded How often do you have a drink containing alcohol ? 0 04/15/2024 How many drinks containing a lcohol do you have on a typical day when you are drinking? 0 04/15/2024 How often do you have six or more drinks on one occasion? 0 04/15/2024 Depression Answer Date Recorded Patient Health Questionnaire-9 Score 0 04/15/2024 Patient Health Questionnaire-9 Score 0 04/15/2024 Last PHQ-9: Questionnaire Data Not on file 0 04/15/2024 Housing Stability Answer Date Recorded What is your housing situation today? I have danish mccartney 04/15/[address] you li ve. Do you have problems with any of the following? None of the above 04/15/2024 Food Insecurity Answer Date Recorded Within the past 12 months, y ou worried that your food would run out before you got money to buy more: Never True 04/15/2024 Within the past 12 months,th e food you bought just didn't last and you didn't have enough money to get more: Never True 06/2024 Transportation Answer Date Recorded In the past 12 months, has l ack of transportation kept you from medical appts, meetings, work or from getting things needed for daily living? No 04/15/2024 Utilities Answer Date Recorded In the past 12 months, has t he electric, gas, oil or water company threatened to shut off services in your home? No 04/15/2024 Depression Answer Date Recorded Patient Health Questionnaire-2 Score 0 04/15/2024 Internet Access Answer Date Recorded Internet Access Q1 Yes 04/15/2024 Internet Access Q2 Not on file 04/15/2024 Comments Unknown Sex and Gender Information Value Date Recorded Sex Assigned at Female 04/14/2024 9:12 AM EST Legal Sex Female 4:38 PM EDT Gender Identity Female 04/14/2024 9:12 AM EST Sexual Orientation Straight 04/14/2024 9: 12 AM EST documented as of this encounter Last Filed Vital Signs Vital Sign Reading Time Taken Comments Blood Pressure 108/65 04/15/2024 3:17 PM EST Pulse 65 04/15/2024 3:17 PM EST Temperature 36.2 ??C (97.1 ??F) 04/15/2024 3:17 PM ES T Respiratory Rate 20 04/15/2024 3:17 PM EST Oxygen Saturation 97% 04/15/2024 3:17 PM EST Inhaled Oxygen Concentration - - Weight 66.2 kg (146 lb) 04/15/2024 3:17 PM EST Height 160 cm (5' 3 ) 04/15/2024 3:17 PM EST Body Mass Index 25.86 04/15/2024 3:17 PM EST documented in this encounter Plan of Treatment Upcoming Encounters Date Type Department Care Team (Late st Contact Info) Description 06/10/2024 9:00 AM EDT Procedure Visit [facility] MED[facility] [address] [place] [address] Melba Tamayo NP [address] [place] [address] Scheduled Orders Name Type Priority Associated Diagnoses Orde r Schedule Hepatitis B Core Antibody, Total Lab Routine Screening examination for STI Expected: 04/15/2024 (Approximate), Expires: 04/15/2025 Hepatitis B Surface Antibody, Qualitative Lab Routine Screening examination for STI Expected: 04/15/2024 (Approximate), Expires: 04/15/2025 Hepatitis B surface antigen, EIA Lab Routine Screening examination for STI Expected: 04/15/2024 (Approximate), Expires: 04/15/2025 Hepatitis C Antibody with Reflex to HCV, RNA, Quantitative, Real-Time PCR Lab Routine Screening examination for STI Expected: 04/15/2024 (Approximate), Expires: 04/15/2025 HIV-1/2 Antigen and Antibodies, Fourth Generation, with Reflexes Lab Routine Screening examination for STI Expected: 04/15/2024 (Approximate), Expires: 04/15/2025 Syphilis Screen Lab Routine Screening examination for STI Expected: 04/15/2024 (Approximate), Expires: 04/15/2025 Chlamydia/N. Gonorrhoeae RNA, TMA, Urine Microbiology Routine Screening examination for STI Expected: 04/15/2024 (Approximate), Expires: 04/15/2025 Lipid Panel, Standard Lab Routine Overweight (BMI 25.0-29.9) Expected: 04/15/2024 (Approximate), Expires: 04/15/2025 Basic Metabolic Panel Lab Routine Overweight (BMI 25.0-29.9) Expected: 04/15/2024 (Approximate), Expires: 04/15/2025 TSH W/Reflex to FT4 Lab Routine Overweight (BMI 25.0-29.9) Expected: 04/15/2024 (Approximate), Expires: 04/15/2025 Scheduled Referrals Name Type Priority Associated Diagnoses Order Schedule Referral to [facility] Eye Care Outpatient Referral Routine Encounter for health-related screening Expected: 04/15/2024 (Approximate), Expires: 04/15/2025 Referral to Behavioral Health Outpatient Referral Routine Anxiety Expected: 04/15/2024 (Approximate), Expires: 04/15/2025 documented as of this encounter Visit Diagnoses Diagnosis Screening examination for STI- Primary Overweight (BMI 25.0-29.9) Overweight Encounter to establish care Encounter for health-related screening Anxiety Anxiety state, unspecified documented in this encounter Additional Health Concerns Assessment Noted Time PHQ-9 Depression Total Score: 0 04/16/19 3:20 PM EST documented as of this encounter Care Teams Rotary Helper Relationship Specialty Start Date End Date Melba Tamayo NP [address] [place] [phone] PCP - General Family Medicine 04/15/24 documented as of this encounter
--- OUTSIDE RECORDS SUMMARY | 2024-04-16 10:55 | XMS_ITS | Encounter Summary ---
Author Organization [employer] Address [address] [place] [address] Care Team Providers Care Land Sales Agent Name Role Phone Melba Tamayo KONRAD Primary Care Provider [phone] Encounter Details Date Type Department Care Team (Latest Contact Info) Description 04/15/2024 Travel Social History Tobacco Use Types Packs/Day Years [...] AM EST documented as of this encounter Plan of Treatment Upcoming Encounters Date Type Department Care Team (Late st Contact Info) Description 06/10/2024 9:00 AM EDT Procedure Visit [facility] [address] [place] [address] Melba Tamayo NP [address] [place] [address] documented as of this encounter Visit Diagnoses Not on filedocumented in this encounter Additional Health Concerns Assessment Noted Time PHQ-9 Depression Total Score: 0 04/16/19 3:20 PM EST documented as of this encounter Care Teams Land Sales Agent Relationship Specialty Start Date End Date Melba Tamayo NP [address] [place] [address] PCP - General Family Medicine 04/15/24 documented as of this encounter
--- OUTSIDE RECORDS SUMMARY | 2024-04-16 10:55 | XMS_ITS | Encounter Summary ---
Author Organization [employer] Address [address]t [place] [address] Care Team Providers Care Traffic Engineering Director Name Role Phone Unavailable Primary Care Provider Unavailabl e Reason for Visit * Reason Onset Date Comments chartprep 04/09/2024 Encounter Details Date Type Department Care Team (Late Contact Info) Description 04/09/2024 Telephone [facility] [address] [place], [place] [phone] Tiffani Lopez MA chartprep Social History Tobacco Use Types Packs/Day Years Used Date Smoking Tobacco: Never Assessed Comments Unknown Sex and Gender Information Value Date Recorded Sex Assigned at Female 04/14/2024 9:12 AM EST Legal Sex Female 4:38 PM EDT Gender Identity Female 04/14/2024 9:12 AM EST Sexual Orientation Straight 04/14/2024 9: 12 AM EST documented as of this encounter Miscellaneous Notes [...] Department Care Team (Late Contact Info) Description 06/10/2024 9:00 AM EDT Procedure Visit [facility] [address] [place], [place] [phone] Melba Tamayo NP [address] [place] [address] documented as of this encounter Visit Diagnoses Not on filedocumented in this encounter
--- OUTSIDE RECORDS SUMMARY | 2024-04-16 10:55 | XMS_ITS | Clinical Summary ---
Author Organization [employer] Address [address]t [place] [address] Care Team Providers Care Truck Driver Teamster Name Role Phone Melba Tamayo NP Primary Care Provider [phone] Allergies No known active allergies Medications dicyclomine (Bentyl) 20 MG tablet TAKE 1 TABLET BY MOUTH TWICE DAILY NEEDED FOR DIARRHEA 03/13/19 25 025 Discontinued(Me d list cleanup (will not trigger notification to Pharmacy)) ondansetron (Zofran) 4 MG tablet take 1 tablet by mouth every 8 hours as needed for nausea and vomiting 03/13/19 25 025 Discontinued(Me d list cleanup (will not trigger notification to Pharmacy)) Active Problems No known active problems Encounters Date Type Department Care Team Description 04/15/2024 2:00 PM EST Office Visit [address] [address] Melba Tamayo NP Screening examination for STI (Primary Dx); Overweight (BMI 25.0-29.9); Encounter to establish care; Encounter for health-related screening; Anxiety 04/15/2024 Travel 04/09/2024 Telephone [facility] [address] [place] [address] Tiffani Lopez MA chartprep 04/08/2024 Patient Outreach [facility] [address] [place] [address] Melba Tamayo NP Pre-visit Planning (SDOH will need to be completed in office. ) 03/12/2024 Orders Only [facility] External Provider, [facility] 02/13/2024 Telephone [facility] [address] [place] [phone] Konrad Walker MD New patient appt. from Last 3 Months Family History Medical History Relation Name Comments Diabetes Father No Known Problems Mother Relation Name Status Comments Father Mother Social History Tobacco Use Types Packs/Day Years [...] Orientation Straight 04/14/2024 9: 12 AM EST Last Filed Vital Signs Vital Sign Reading [...] Mass Index 25.86 04/15/2024 3:17 PM EST Plan of Treatment Upcoming Encounters Date Type Department Care Team (Late st Contact Info) Description 06/10/2024 9:00 AM EDT Procedure Visit [facility] [address] [place], [place] [phone] Melba Tamayo NP [address] [place] [address] Health Maintenance Due Date Last Done Comments Chlamydia and Gonorrhea Screening 2000 HIV Screening 2000 Lipid Panel 2000 Family Planning (PISQ) 04/26/2015 HPV Vaccines (1 - 3-dose series) 04/26/2015 Hepatitis C Screening 2018 DTaP/Tdap/Td Vaccines (1 - Tdap) 04/26/2019 Hepatitis B Vaccines (1 of 3 - 19+ 3-dose series) 04/26/2019 Pneumococcal Vaccine: Pediatrics (0 to 5 Years) and At-Risk Patients (6 to 49) Years) (1 of 2 - PCV) 04/26/2019 Pap Smear 2021 COVID-19 Vaccine (1 - 2023-2 5 season) 2023 Influenza Vaccine (#1) 2023 Alcohol/Substance Use Screening 04/15/2025 04/15/2024 Depression Screening 04/15/2025 04/15/2024, 04/15/2024 SDOH Screening 04/15/2025 04/15/2024 Tobacco Screening 04/15/2025 04/15/2024 Zoster Vaccines (1 of 2) 2050 RSV Patients and Patients Aged 60 years or older (1 - [...] EST Narrative 03/13/2024 12:56 AM EST ? [facility] ?[address] ?[place] [address] ? Ultrasound Report ? Signed ? Patient: John Aponte,Thang ?MR#: ?? [id number] ? : 2000 ?Acct:[id number] ? Age/Sex: 23 / F ?ADM Date: 03/12/24 ? Loc: HO.ED ? Attending Dr: ? Ordering Physician: Linda Silva ?? Date of Service: 03/12/24 ?? Procedure(s): US abdomen limited ?? Accession Number(s): [id number] ? cc: Linda Silva; [facility] [...] 0056 ? DD/ 0054 ? TD/TT: 03/13/24 0054 ? Machine Filler Servicer: ? Procedure Note Donotuseinterpreter, Image - 03/13/[address] [address] Ultrasound Report Signed Patient: Ramon FlowerR#: [id number] : 2000Acct:[id number] Age/Sex: 23 / FADM Date: 03/12/24 Loc: HO.ED Attending Dr: Ordering Physician: Linda Silva Date of Service: 03/12/24 Procedure(s): US abdomen limited Accession Number(s): [id number] cc: Linda Silva; [facility] CLINICAL [...] signed by Rickey Huston MD in OV> 03/13/2455 DD/ TD/TT: 03/13/2453 Machine Filler Servicer: us [facility] External Provider IMG US PROCEDURES Edited Result - Final from Last [address] [facility] C3 Care Teams Truck Driver Teamster Relationship Specialty Start Date End Date Melba Tamayo NP [address] [place] [phone] PCP - General Family Medicine 04/15/24
--- OUTSIDE RECORDS SUMMARY | 2024-04-16 10:55 | XMS_ITS | Encounter Summary ---
Author Organization [employer] Address [address] [place] [address] Care Team Providers Care Pipe Fitter Gas Pipe Name Role Phone Unavailable Primary Care Provider Unavailabl e Reason for Visit * Reason Comments Pre-visit Planning SDOH will need to be completed in office. Encounter Details Date Type Department Care Team (Late Contact Info) Description 04/08/2024 Patient Outreach [facility] [address] [place] [address] Melba Tamayo NP [address] [place] [address] Pre-visit Planning (SDOH will need to be [...] AM EST documented as of this encounter Progress Notes [...] Description 06/10/2024 9:00 AM EDT Procedure Visit [facility] [address] [place] [address] Melba Tamayo NP [address] [place], [place] [phone] documented as of this encounter Visit Diagnoses Not on filedocumented in this encounter
[2024-04-16 12:13] LABS: Anion Gap 11 (12-20); Blood Urea Nitrogen 9 mg/dL (9-16); Calcium 9.4 mg/dL (8.4-10.2); Carbon Dioxide 27 mmol/L (22-29); Chloride 106 mmol/L (96-108); Cholesterol 166 mg/dL (<200); Estimated Glomerular Filt Rate > 60; Glucose Random 92 mg/dL (60-115); HDL Cholesterol 47 mg/dL (>40); LDL Cholesterol Calculated 102 mg/dL (<100); Potassium 4.2 mmol/L (3.3-5.1); Sodium 140 mmol/L (135-145); Triglycerides 87 mg/dL (<150)
[2024-04-16 12:27] LABS: TSH reflex Free T4 1.13 uIU/mL (0.32-4.0)
[2024-04-16 12:31] LABS: HBS Num1 4.11 mIU/mL (0-7.99); HBc Num1 0.08 S/CO (0.00-0.79); HBsAGNum1 0.31 S/CO (0.00-0.99); HIV AB/AG Nonreactive (Nonreactive); HIV Num 1 0.07 S/CO (0.00-0.99); Hepatitis B Core Antibody Nonreactive (Nonreactive); Hepatitis B Surface Antigen Negative (Negative); ~HepC Num1 0.22 S/CO (0.00-0.79); ~Hepatitis B Surface Antibody NONREACTIVE (Nonreactive); ~Hepatitis C Antibody Nonreactive (Nonreactive)
[2024-04-17 09:16] LABS: Syphilis Screen Nonreactive (Nonreactive)
[2024-04-17 13:30] LABS: CT PCR NOT DETECTED (Not Detect.); NG PCR NOT DETECTED (Not Detect.)
== END 2024-04-16 09:37 | disposition home or self-care (01) ==
LOC: HO.HHCL 09:36
PROVIDERS: Visit Provider Nurse Practitioner
DX: E66.3 Overweight (principal); Z11.3 Encounter for screening for infections with a predominantly sexual mode of transmission
CPT/HCPCS: 80048; 80061; 84443; 86704; 86706; 86780; 86803; 87340; 87389; 87491; 87591

== ENCOUNTER 2024-05-14 23:25 | Emergency (ER) | payer MEDICAID, SELFPAY ==
--- NOTE | ~2024-05-14 | XR_ITS ---
CLINICAL HISTORY: right posterior rib pain Exam: AP and oblique views of the right ribs and frontal view of the chest. Comparison: Abdominal radiographs april 09, 2024. Findings: No displaced rib fractures. Lungs are well inflated. Cardiac silhouette is within normal limits. No focal area of consolidation. No pleural effusion or pneumothorax. Impression: No acute finding This document has been electronically signed by: Cem Wallace MD on 05/15/2024 01:13:11
[2024-05-14 23:26] VITALS: BP 104/60; PULSE 94; RESP 16; TEMP 36.6; O2SAT 97; BMI 25.5
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
[2024-05-15 01:27] VITALS: BP 108/69; PULSE 70; RESP 16; TEMP 36.9; O2SAT 97
[2024-05-15 01:48] VITALS: BP 108/69; PULSE 70; RESP 16; TEMP 36.9; O2SAT 97
== END 2024-05-15 01:49 | disposition home or self-care (01) ==
PROVIDERS: Emergency Provider Emergency Medicine; PCP Student in an Organized Health Care Education/Training Program
DX: M54.50 Low back pain, unspecified (principal); R10.2 Pelvic and perineal pain; R07.81 Pleurodynia
CPT/HCPCS: 71101; 99282; 99283

== ENCOUNTER → 2024-05-15 00:37 | Outpatient (BNV) | payer MEDICAID, SELFPAY | PROVIDERS: Emergency Provider Emergency Medicine; PCP Student in an Organized Health Care Education/Training Program; Visit Provider Radiology Diagnostic Radiology | DX: R07.89 Other chest pain (principal) | CPT/HCPCS: 71101 ==

== ENCOUNTER 2024-12-16 12:47 | Emergency (ER) | payer MEDICAID, SELFPAY ==
--- NOTE | ~2024-12-16 | US_ITS ---
CLINICAL HISTORY: abdominal pain, vomitting US OB 1st trimester transabdominal with Doppler Comparison: None provided Findings: Single intrauterine . MSD: 2.3 cm. CRL: 6.8 mm. EGA: 7 weeks, 0 days. ALEXX: August 04, 2025. Previously established gestational age: N/A. Normal yolk sac. Cardiac activity: 135 bpm. Subchorionic hypoechoic meniscus 1.3 x 0.2 cm. Right ovary 3 x 2.4 x 2.5 cm. Left ovary 1.7 x 3.3 x 1.7 cm. Normal color Doppler with arterial/venous spectral tracing of both ovaries. IMPRESSION: 1. Single intrauterine estimated 7 weeks, 0 days gestational age by today's ultrasound criteria. 2. No evidence of ovarian torsion. 3. Subchorionic hemorrhage suspected, 1.3 x 0.2 cm. Short-term follow-up is suggested. This document has been electronically signed by: Jones Braden MD on 12/16/2024 17:33:44
[2024-12-16 13:04] VITALS: BP 115/54; PULSE 73; RESP 18; TEMP 36.6; O2SAT 98; BMI 25.7
--- NOTE | 2024-12-16 13:09 | ED.GENADULT ---
HPI - General Adult General Chief complaint: Abdominal Pain Stated complaint: Vomiting, nausea Time Seen by Provider: 12/16/24 16:01 History of Present Illness ED Provider: Jose Pérez MD HPI narrative: 24-year-old female last period about 3 months ago but she has a regular menses. She had little thin vaginal discharge and some upper abdominal discomfort nausea felt she might be . No vaginal bleeding or passage of products no back pain flank pain dysuria Related Data Previous Rx's ?Medication ?Instructions ?Recorded dicyclomine 20 mg tablet 20 mg PO BID PRN diarrhea #7 tabs 03/13/24 ondansetron HCl 4 mg tablet 4 mg PO Q8H PRN nausea and 03/13/24 vomiting #10 tabs ondansetron HCl 4 mg tablet 4 mg PO Q8H PRN nausea and 04/09/24 vomiting #10 tabs cyclobenzaprine 10 mg tablet 10 mg PO TID PRN muscle spasm #20 05/15/24 tabs doxylamine succinate 25 mg tablet 25 mg PO TID 2 weeks #42 tabs 12/16/24 famotidine 20 mg tablet 20 mg PO BID 1 week #14 tabs 12/16/24 vitamins no.144-folic 2 tab PO DAILY 6 weeks #84 tabs 12/16/24 acid 400 mcg chewable tablet () pyridoxine (vitamin B6) 25 mg 25 mg PO TID nausea 2 weeks #42 12/16/24 tablet tabs Allergies Allergy/AdvReac Type Severity Reaction Status Date / Time No Known Allergies Allergy Verified 12/16/24 13:05 [facility] Social History Social History Smoked in Last 30 Days: No Use of substances other than those prescribed or required for medical reasons: No Advance Directives: No Advance Directives Information Provided: No Do you have a plan to hurt others: No Plan Patient : Yes Physical Exam ED Exam Exam: EXAM: Gen: Alert, awake, well appearing, well hydrated. Head: Atraumatic Eyes: Anicteric, Normal conjunctiva. ENT: Moist mucosa, no pallor. ? Neck: Supple. Skin: ?No observable rash or bruising on exposed or examined skin Respiratory: Breathing comfortably, No distress.Clear to auscultation bilaterally, symmetric chest expansion, No wheeze, rales, ronchi. Cardiovascular: Regular rate and rhythm. No murmurs or rub. Well perfused periphery, warm extremities. No edema. ? Abdominal: No focal tenderness. Soft, no objective distension. No palpable masses or obvious organomegaly. ?No guarding, no rebound tenderness or other peritoneal findings. : No flank tenderness. Neuro: Alert. Gross movement of all extremities intact. ? Psych: Calm. Cooperative. MSK: No grossly visible deformity. Vital signs: See flowsheet Vital Signs: Vital Signs - 24 hr 12/16/24 13:04 12/16/24 16:24 12/16/24 18:02 Temperature 98 F 0 F L Pulse Rate 73 73 73 Respiratory Rate 18 18 18 Blood Pressure 115/54 L 117/68 117/68 Pulse Oximetry 98 100 100 Oxygen Delivery Method Room Air Room Air Room Air BMI result Body Mass Index 25.7 Course Course Course Narrative: RME: 24-year-old female presents to ED for 4 days of nausea vomiting and abdominal pain. Labs ordered Medications Administered Discontinued Medications Generic Name Dose Route Start Last Admin Trade Name Freq PRN Reason Stop Dose Admin Metoclopramide HCl 10 mg 12/16/24 16:42 12/16/24 17:10 Metoclopramide Hcl 10 Mg Tablet PO 12/16/24 16:43 10 mg ONCE ONE Administration Medical Decision Making Medical Decision Making MDM Narrative: Medical Decision Making: [age] female with upper abdominal discomfort nausea. Seven weeks with IUP appropriate heart rate per Radiology ultrasound. No fever no dysuria no signs of UTI. Lab work reassuring. Likely either mild gastritis or GERD I will prescribe famotidine she has a nontender and benign abdomen. She was reassured and excited about being we have referred her for OBGYN follow up at [facility] as she has no established OB. She has no known medical history. Plan for first-line safe antiemetics PRN or scheduled up to her. vitamins. Famotidine for presumed empiric treatment of gastritis Preliminary Favored Differential Diagnosis: 1st trimester , gastritis GERD PUD among additional considered etiologies Testing Interpreted Independently: ?See below for details Radiology or Lab testing Results Reviewed: ?See below for details Consults: ?See below for details Independent Historians/External Chart Reviews: ?See below for details Social Determinants of Health Impacting MDM/Planning: ?See below for details Lab Data 12/16/24 13:25 12/16/24 13:25 Labs: Lab Results 12/16/24 Range/Units 13:25 WBC 10.3 (4.8-10.8) X10*3/uL RBC 4.68 (4.20-5.50) X10*6/uL Hgb 13.5 (12.0-16.0) g/dl Hct 40.3 (37.0-47.0) % MCV 86.1 (80.0-98.0) fL MCH 28.8 (27.0-33.0) pg MCHC 33.5 (31.0-35.0) g/dl RDW 12.2 (11.0-16.0) % Plt Count 265 (160-400) X10*3/uL MPV 10.1 (9.4-12.3) fL Immature Gran % (Auto) 0.4 (0.0-0.4) % Neut % (Auto) 69.1 (45-73) % Lymph % (Auto) 21.3 (20-40) % [place] % (Auto) 8.1 (2-11) % Eos % (Auto) 0.6 (0-4) % Baso % (Auto) 0.5 (0-2) % Lymph # (Auto) 2.2 (1.2-4.9) X10*3/uL [place] # (Auto) 0.8 (0.1-1.2) X10*3/uL Eos # (Auto) 0.1 (0.0-0.4) X10*3/uL Baso # (Auto) 0.1 (0.0-0.2) X10*3/uL Abs Immat Gran (auto) 0.04 H (0.00-0.03) X10*3/uL Absolute Neuts (auto) 7.1 (2.0-8.3) x10*3/uL Absolute Nucleated RBC 0.000 (0.0-0.012) X10*3/uL Nucleated RBC % (auto) 0.0 (0.0-0.2) /100WBC Sodium 136 (135-145) mmol/L Potassium 4.2 (3.3-5.1) mmol/L Chloride 106 (96-108) mmol/L Carbon Dioxide 27 (22-29) mmol/L Anion Gap 7 L (12-20) BUN 10 (9-16) mg/dL Creatinine 0.58 (0.5-1.4) mg/dL Estim Creat Clear Calc 136.3 Estimated GFR > 60 Random Glucose 82 (60-115) mg/dL Calcium 9.8 (8.4-10.2) mg/dL Total Bilirubin 0.5 (0.0-1.0) mg/dL AST 39 H (5-31) U/L ALT 17 (0-31) U/L Alkaline Phosphatase 50 (39-117) U/L Total Protein 8.4 H (6.5-8.0) g/dL Albumin 4.9 (3.5-5.0) g/dL Lipase 58 (8-78) U/L Beta HCG, Quant 02576 mIU/mL Urine Color Yellow Urine Appearance Clear Urine pH 6.5 (5.0-9.0) Ur Specific [place] 1.020 (1.005-1.025) Urine Protein Negative (Neg-Trace) mg/dL Urine Glucose (UA) Negative (Negative) mg/dL Urine Ketones 15 (Negative) mg/dL Urine Blood Negative (Negative) Urine Nitrite Negative (Negative) Ur Leukocyte Esterase Trace H (Negative) Urine RBC 0-2 (0-2) /HPF Urine WBC 0-5 (0-5) /HPF Ur Squamous Epith Cells 11-20 (0-2) /HPF Urine Bacteria 1+ (None Seen) Hyaline Casts 0-2 (0-2) /LPF Urine Test POSITIVE H (NEGATIVE) COVID-19 (SANDER) Negative (Negative) COVID-19 Clin Com See Note Influenza Type A (YANELI) Negative (Negative) Influenza Type B (YANELI) Negative (Negative) Influenza A & B Note See Note S. pyogenes GrpA YANELI Negative (Negative) Discharge Plan Discharge Clinical Impression: Patient Disposition: Home, Self-Care Instructions: (ED) Additional Instructions: DISCHARGE DIAGNOSES: Early no apparent complications, likely nausea of early HISTORY OF PRESENTATION: ?Nausea upper abdominal discomfort EMERGENCY DEPARTMENT COURSE,TESTS, TREATMENTS: While in the ED today you had lab work and urinalysis which was reassuring ultrasound showed an intrauterine with inappropriate heart rate at about 7 weeks gestation DISCHARGE MEDICATIONS: ?We have prescribed you some medications for nausea, vitamins and antacid medications FOLLOW-UP: ?Call your primary or general physician soon as possible to discuss your symptoms, your ED visit and to discuss follow up plans Call [facility] OBGYN for follow up: [address], [address] [place] [address] [phone] INSTRUCTIONS ?& RETURN PRECAUTIONS: If any symptoms change first call your primary physician, if it is after-hours your primary doctors office should have a provider promotions associate you can speak with. If the symptoms are severe or very concerning to you then call 911 or return to the ED. [[id number]] Jose Pérez MD Emergency Physician [facility] Prescriptions: New 400 mcg tablet,chewable 2 tab PO DAILY 42 Days Qty: 84 0RF pyridoxine (vitamin B6) 25 mg tablet 25 mg PO TID 14 Days Qty: 42 0RF doxylamine succinate 25 mg tablet 25 mg PO TID 14 Days Qty: 42 0RF famotidine 20 mg tablet 20 mg PO BID 7 Days Qty: 14 0RF No Action cyclobenzaprine 10 mg tablet 10 mg PO TID PRN (Reason: muscle spasm) Qty: 20 0RF ondansetron HCl 4 mg tablet 4 mg PO Q8H PRN (Reason: nausea and vomiting) Qty: 10 0RF dicyclomine 20 mg tablet 20 mg PO BID PRN (Reason: diarrhea) Qty: 7 0RF ondansetron HCl 4 mg tablet 4 mg PO Q8H PRN (Reason: nausea and vomiting) Qty: 10 0RF Referrals: [facility] Community Navigation [Provider Group] Interventions: ED Discharge Assessment Last Done: 12/16/24 18:02 Discharge Date/Time: 12/16/24 18:04 Print Language: Slovenian
[2024-12-16 13:31] LABS: MANUAL DIFF FLAG NO
[2024-12-16 13:32] LABS: Hematocrit 40.3 % (37.0-47.0); Hemoglobin 13.5 g/dl (12.0-16.0); Imm Gran Abs Auto 0.04 X10*3/uL (0.00-0.03); Imm Gran Pct Auto 0.4 % (0.0-0.4); Lymphocytes Absolute Auto 2.2 X10*3/uL (1.2-4.9); Mean Corpuscular HGB Conc 33.5 g/dl (31.0-35.0); Mean Corpuscular Hemoglobin 28.8 pg (27.0-33.0); Mean Corpuscular Volume 86.1 fL (80.0-98.0); NRBC Abs Auto 0.000 X10*3/uL (0.0-0.012); NRBC Pct Auto 0.0 /100WBC (0.0-0.2); Platelet Count 265 X10*3/uL (160-400); Red Blood Count 4.68 X10*6/uL (4.20-5.50); White Blood Count 10.3 X10*3/uL (4.8-10.8)
[2024-12-16 13:38] LABS: UPreg QC Valid YES
[2024-12-16 13:42] LABS: IDNOW Serial# 08D9AD1C; Strep A Nucleic Acid Negative (Negative)
[2024-12-16 13:43] LABS: Appearance Urine Clear; Glucose Urine UA Negative (Negative); PH 6.5 (5.0-9.0); Specific Gravity - Urine 1.020 (1.005-1.025); UMIC TRIGGER UACC YES
[2024-12-16 13:48] LABS: IDNOW Serial# 55D5AD1C; Influenza B2 Negative (Negative)
[2024-12-16 13:49] LABS: COVID-19 Test Negative (Negative); IDNOW Serial# 58CA691E
[2024-12-16 13:56] LABS: Alanine Aminotransferase 17 U/L (0-31); Albumin Level 4.9 g/dL (3.5-5.0); Alkaline Phosphatase 50 U/L (39-117); Anion Gap 7 (12-20); Aspartate Amino Transferase 39 U/L (5-31); Blood Urea Nitrogen 10 mg/dL (9-16); Calcium 9.8 mg/dL (8.4-10.2); Carbon Dioxide 27 mmol/L (22-29); Chloride 106 mmol/L (96-108); Creatinine Clr Calc Pharmacy 136.3; Estimated Glomerular Filt Rate > 60; Lipase 58 U/L (8-78); Potassium 4.2 mmol/L (3.3-5.1); Sodium 136 mmol/L (135-145); Total Protein 8.4 g/dL (6.5-8.0)
[2024-12-16 16:24] VITALS: BP 117/68; PULSE 73; RESP 18; O2SAT 100
[2024-12-16 18:02] VITALS: BP 117/68; PULSE 73; RESP 18; TEMP -17.7; TEMP 0; O2SAT 100
--- OUTSIDE RECORDS SUMMARY | 2024-12-16 18:48 | XMS_ITS | Clinical Summary ---
Author Organization [employer] Address [address] [facility] [address] [place] [address] Care Team Providers Care Maxillofacial Pathology Name Role Phone Melba Tamayo KONRAD Primary Care Provider [phone] Allergies No known active allergies Medications * This document contains information received from the source organization and may not represent a complete record from that organization. No known medications Active Problems Problem Noted Date Diagnosed Date Encounter to establish care 06/25/2024 Assessment & Plan (06/25/2024 12:53 PM EDT): -patient is new to [facility] -personal medical, surgical, and medication histories reviewed along with family hx -routine health maintenance discussed -low cardiovascular risk -mental health screening w/o evidence of depression; positive for anxiety -healthy social behaviors encouraged -anticipatory guidance reviewed: diet, exercise Overweight (BMI 25.0-29.9) 06/25/2024 Assessment & Plan (06/25/2024 12:52 PM EDT): Dietary Recommendations: Fruits, vegetables, whole grains, protein foods, and fat-free or low-fat dairy products are healthy choices. Eat different types of protein foods in your diet. This can include seafood, lean meats, poultry, beans, peas, lentils, nuts, seeds, soy products, and eggs. Limit foods and beverages higher in added sugars, saturated fat, and sodium. Exercise Recommendations: At least 150 minutes of moderate-intensity physical activity per week, or an equivalent combination of moderate- and vigorous-intensity activity Moderate anxiety 04/21/2024 Assessment & Plan (04/21/2024 1:38 PM EDT): During IBH Consult Thang presenting with excessive worry/anxiety, difficulty controlling worry, anxiety/worry associated to restlessness and/or feeling keyed-up/On edge , easily fatigued , difficulty concentrating and/or mind going blank , irritability, and muscle tension , and Fear ; for a period of 0-6 mo, for most or all symptoms in the context of employment concern and recent move. Patient reported she moved from [place] a year and a half ago. When she was in [place] she had a therapist and psychiatrist. She's not longer having OP care. Pt reports her anxiety is constant, especially when she's under stress. Current triggers associated with being unemployed, difficulty sharing her emotions with others and being out of her medication. Unhealthy coping mechanisms identified as eating more than she should which bring guilty feelings and regret. Pt used to enjoy exercising and working out when she was in [place]. clinician engaged patient with active/reflective listening. Reviewed and assessed for risk, current stressors and protective factors using open-ended questions. Explored coping strategies that patient can incorporate and replace current strategies that are causing more harm. Pt will be referred to OP services and psychiatry for medication management. Encounters Date Type Department Care Team Description 12/16/2024 Orders Only GENERIC EXTERNAL DATA DEPARTMENT Provider, Generic External Data from Last 3 Months Family History Medical History Relation Name Comments Diabetes Father No Known Problems Mother Relation Name Status Comments Father Mother Social History Tobacco Use Types Packs/Day Years Used Date Smoking Tobacco: Some Days Cigarettes 0.3 3.8 Started: 2021 Smokeless Tobacco: Never Alcohol Use [...] 65 04/15/2024 3:17 PM EST Temperature 36.2 C (97.1 F) 04/15/2024 3:17 PM EST Respiratory Rate 20 04/15/2024 3:17 PM EST Oxygen Saturation 97% 04/15/2024 3:17 PM EST Inhaled Oxygen Concentration - - Weight 66.2 kg (146 lb) 04/15/2024 3:17 PM EST Height 160 cm (5' 3 ) 04/15/2024 3:17 PM EST Body Mass Index 25.86 04/15/2024 3:17 PM EST Plan of Treatment Health Maintenance Due Date Last Done Comments Disability Screening 2000 Family Planning (PISQ) 04/26/2015 HPV Vaccines (1 - 3-dose series) 04/26/2015 DTaP/Tdap/Td Vaccines (1 - Tdap) 04/26/2019 Hepatitis B Vaccines (1 of 3 - 19+ 3-dose series) 04/26/2019 Pneumococcal Vaccine: Pediatrics (0 to 5 Years) and At-Risk Patients (6 to 49) Years (1 of 2 - PCV) 04/26/2019 Pap Smear 2021 COVID-19 Vaccine (1 - 2023-2 5 season) 2024 Influenza Vaccine (#1) 2024 Alcohol/Substance Use Screening 04/15/2025 04/15/2024 Depression Screening 04/15/2025 04/15/2024, 04/15/2024 SDOH Screening 04/15/2025 04/15/2024 Tobacco Screening 04/15/2025 04/15/2024 Lipid Panel 04/16/2029 04/16/2024 Zoster Vaccines (1 of 2) 2050 RSV Patients and Patients Aged 60 years or older (1 - 1-dose 75+ series) 04/26/2075 HIV Screening Completed 04/16/2024 Hepatitis C Screening Completed 04/16/2024 HIB Vaccines Aged Out No longer eligi ble based on patient's age to complete this topic Hepatitis A Vaccines Aged Out No long er eligible based on patient's age to complete this topic IPV Vaccines Aged Out No longer eligi ble based on patient's age to complete this topic Meningococcal B Vaccine Aged Out No l onger eligible based on patient's age to complete [...] Procedure Name Priority Date/Time Associated Diagnosis Comments HCG, TOTAL, QN Routine 12/16/2024 1:25 PM EST LIPASE Routine 12/16/2024 1:25 PM EST COMPREHENSIVE METABOLIC PANEL Routine 12/16/2024 1:25 PM EST COVID-19 ID NOW (SMITH) Routine 12/16/2024 1:25 PM EST URINALYSIS, COMPLETE, WITH REFLEX TO CULTURE Routine 12/16/2024 1:25 PM EST HCG, QL, URINE Routine 12/16/2024 1:25 PM EST CBC WITH AUTO DIFFERENTIAL Routine 12/16/2024 1:25 PM EST INFLUENZA A B2 ID NOW (SMITH) Routine 12/16/2024 1:25 PM EST STREP A NUCLEIC ACID Routine 12/16/2024 1:25 PM EST HEPATITIS C AB W/REFL TO HCV RNA, QN, PCR Routine 04/16/2024 9:38 AM EST Screening examination for STI HIV 1/2 ANTIGEN/ANTIBODY, FOURTH GENERATION W/RFL Routine 04/16/2024 9:38 AM EST Screening examination for STI LIPID PANEL, STANDARD Routine 04/16/2024 9:38 AM EST Overweight (BMI 25.0-29.9) from Last 3 Months or Most Recently Relevant to Health Maintenance Results * Influenza A B2 ID NOW (Smith) (12/16/2024 1:25 PM EST) IDNOW SERIAL# [id number] [facility] Influenza A Negative Negative [facility] Influenza B2 Negative Negative [facility] Influenza A B2 Note See Note [facility] Comment:The Smith ID NOW In fluenza A B2 test is used for thequalitative detection of influenza A and B from patientswith signs and symptoms of respiratory infection.Negative results do not preclude influenza virus infectionand should not be used as the sole basis for diagnosis,treatment or other patient management decisions.There is a risk of false negative results due to thepresence of variants in the viral targets of the assay, lowlevels of virus in the specimen and co- infection withRespiratory Syncytial Virus. 12/16/2024 1:25 PM EST 12/16/2024 1:30 PM EST us Generic External Data Provider LAB MICROBIOLOGY - GENERAL ORDERABLES Final Result Performing Organization Address [facility] Co de Phone Number [facility] [address] [place] [address] [phone] * Strep A Nucleic Acid (12/16/2024 1:25 PM EST) IDNOW SERIAL# [id number] [facility] Strep A Nucleic Acid Negative Negative [facility] Comment:All test results mus t be correlated with clinical findings.This test has not been evaluated for monitoring treatment ofinfection.Additional follow-up testing using the culture method isrequired if the result is negative and clinical symptomspersist, or in the event of an acute rheumatic feveroutbreak. 12/16/2024 1:25 PM EST 12/16/2024 1:30 PM EST Generic External Data Provider LAB MICROBIOLOGY - GENERAL ORDERABLES Final Result Performing Organization Address [facility] Co de Phone Number [facility] [address] [place] [address] [phone] * COVID-19 ID NOW (SMITH) (12/16/2024 1:25 PM EST) IDNOW SERIAL# [id number] [facility] COVID-19 TEST Negative Negative [facility] COVID-19 NOTE See Note [facility] Comment: Results are for the identification of SARS-CoV2 RNA. TheSARS-CoV2 RNA is generally detectable in respiratory samplesduring the acute phase of infection. Positive results areindicative of the presence of SARS-CoV-2 RNA; clinicalcorrelation with patient history and other diagnosticinformation is necessary to determine patient infectionstatus. Positive results do not rule out bacterial infectionor co- infection with other viruses.Testing facilities within the [facility] and itsterritories are required to report all positive results tothe appropriate public health authorities.Negative results should be treated as presumptive and, ifinconsistent with clinical signs and symptoms or necessaryfor patient management, should be tested with differentauthorized or cleared molecular tests. Negative results donot preclude SARS-CoV2 RNA infection and should not be usedas the sole basis for patient management decisions. Negativeresults should be considered in the context of a patient'srecent exposures, history and the presence of clinical signsand symptoms consistent with COVID-19.This test has been authorized by the FDA under an EmergencyUse Authorization (EUA) for use by authorized laboratories.Testing performed on the Etopus ID NOW utilizing NAAT. 12/16/2024 1:25 PM EST 12/16/2024 1:30 PM EST us Generic External Data Provider LAB MOLECULAR JEANNIE GNOSTICS ORDERABLES Final Result [facility] [address] [place] [phone] * (ABNORMAL) Urinalysis, Complete, with Reflex to Culture (12/16/2024 1:25 PM EST) Color Urine Yellow [facility] Appearance Urine Clear [facility] PH 6.5 5.0 - 9.0 [facility] Glucose Urine UA Negative Negative mg/dL [facility] Urine Blood Negative Negative [facility] Specific [place] - Urine 1.020 1.005 - 1.025 [facility] Urine Protein Negative Neg-Trace mg/dL [facility] Urine Ketones 15 Negative mg/dL [facility] Nitrite Urine Negative Negative [facility] Leukocyte Esterase Urine Trace(A) Negative [facility] RBC Urine 0-2 0 - 2 /HPF [facility] Urine WBC 0-5 0 - 5 /HPF [facility] Urine Squamous Epithelial Cell 11-20 0 - 2 /HPF [facility] Urine Bacteria 1+ None Seen [facility] Hyaline Casts, Urine 0-2 0 - 2 /LPF [facility] 12/16/2024 1:25 PM EST 12/16/2024 1:29 PM EST Narrative [facility] - 12/16/2024 1:49 PM EST [id number], Clean Catch us Generic External Data Provider LAB URINE ORDERAB LES Final Result [facility] [address] [place] [phone] * (ABNORMAL) CBC auto differential (12/16/2024 1:25 PM EST) White Blood Count 10.3 4.8 - 10.8 X10*3/uL [facility] Red Blood Count 4.68 4.20 - 5.50 X10*6/uL [facility] Hemoglobin 13.5 12.0 - 16.0 g/dl [facility] Hematocrit 40.3 37.0 - 47.0 % [facility] Mean Corpuscular Volume 86.1 80.0 - 98.0 fL [facility] Mean Corpuscular Hemoglobin 28.8 27.0 - 33.0 pg [facility] Mean Corpuscular HGB Conc 33.5 31.0 - 35.0 g/dl [facility] Red Cell Distribution Width 12.2 11.0 - 16.0 % [facility] Platelet Count 265 160 - 400 X10*3/uL [facility] Mean Platelet Volume 10.1 9.4 - 12.3 fL [facility] Neutrophils Percent Auto 69.1 45 - 73 % [facility] Imm Gran Pct Auto 0.4 0.0 - 0.4 % [facility] Lymphocytes Percent Auto 21.3 20 - 40 % [facility] Monocytes Percent Auto 8.1 2 - 11 % [facility] Eosinophils Percent Auto 0.6 0 - 4 % [facility] Basophils Percent Auto 0.5 0 - 2 % [facility] NRBC Pct Auto 0.0 0.0 - 0.2 /100WBC [facility] Neutrophils Absolute Auto 7.1 2.0 - 8.3 x10*3/uL [facility] Imm Gran Abs Auto 0.04(H) 0.00 - 0.03 X10*3/uL [facility] Lymphocytes Absolute Auto 2.2 1.2 - 4.9 X10*3/uL [facility] Monocytes Absolute Auto 0.8 0.1 - 1.2 X10*3/uL [facility] Eosinophils Absolute Auto 0.1 0.0 - 0.4 X10*3/uL [facility] Basophils Absolute Auto 0.1 0.0 - 0.2 X10*3/uL [facility] NRBC Abs Auto 0.000 0.0 - 0.012 X10*3/uL [facility] 12/16/2024 1:25 PM EST 12/16/2024 1:30 PM EST Generic External Data Provider LAB BLOOD ORDERAB LES Final Result Performing Organization Address [facility]/ZIP Co de Phone Number [facility] [address] [place] [phone] * (ABNORMAL) HCG, Qualitative, Urine (12/16/2024 1:25 PM EST) Urine POSITIVE(A ) NEGATIVE [facility] 12/16/2024 1:25 PM EST 12/16/2024 1:29 PM EST Generic External Data Provider LAB URINE ORDERAB LES Final Result Performing Organization Address City/[facility] Co de Phone Number [facility] [address] [place] [phone] * hCG, Total, Quantitative (12/16/2024 1:25 PM EST) HCG Quantitative 65,565 mIU/mL [facility] Comment:Weeks post LMP Appro ximate hCG(Last Menstrual Period) Range (mIU/ml)3 - 4 weeks 9 - 1304 - 5 weeks 75 - 2,6005 - 6 weeks 850 - 20,8006 - 7 weeks 4000 - 100,2007 - 12 weeks 11,500 - 289,44567 - 16 weeks 18,300 - 137,29772 - 29 weeks (2nd trimester) 1,400 - 53,82240 - 41 weeks (3rd trimester) 940 - 60,000The Smith B-hCG assay is used for the early detection ofpregnancy; it cannot be used to diagnose any conditionunrelated to . If a B-hCG level is not supportedby the clinical evidence, results should be confirmed by analternative method (qualitative urine hCG, for example). 12/16/2024 1:25 PM EST 12/16/2024 1:30 PM EST Generic External Data Provider LAB BLOOD ORDERAB LES Final Result Performing Organization Address [facility]/ZIP Co de Phone Number [facility] [address] [place] [address] [phone] * Lipase (12/16/2024 1:25 PM EST) Lipase 58 8 - 78 U/L [facility] 12/16/2024 1:25 PM EST 12/16/2024 1:30 PM EST Shots External Data Provider LAB BLOOD ORDERAB LES Final Result Performing Organization Address [facility] de Phone Number [facility] [address] [place] [phone] * (ABNORMAL) Comprehensive Metabolic Panel (12/16/2024 1:25 PM EST) Sodium 136 135 - 145 mmol/L [facility] Potassium 4.2 3.3 - 5.1 mmol/L [facility] Chloride 106 96 - 108 mmol/L [facility] Carbon Dioxide 27 22 - 29 mmol/L [facility] Anion Gap 7(L) 12 - 20 [facility] Urea Nitrogen (BUN) 10 9 - 16 mg/dL [facility] Creatinine, Serum 0.58 0.5 - 1.4 mg/dL [facility] Creatinine Clr Calc Pharmacy 136.3 [facility] Comment:Provided height and weight: 160.02 cm,65.771 kg.eGFR (calculated from the MDRD study equation) and eCrCl(calculated from the Cockcroft-Gault equation) are based ondifferent parameters and may not yield comparable results.If eCrCl result is absurd, please check patient'sheight/weight. Estimated Glomerular Filt Rate >60 [facility] Comment:Chronic Kidney Disea se: Estimated GFR < 60 mL/min/1.91r7Rkfump Kidney Disease: Estimated GFR < 15 mL/min/1.73m2 Glucose 82 60 - 115 mg/dL [facility] Calcium 9.8 8.4 - 10.2 mg/dL [facility] Bilirubin, Total 0.5 0.0 - 1.0 mg/dL [facility] Aspartate Amino Transferase 39(H) 5 - 31 U/L [facility] Alanine Aminotransferase 17 0 - 31 U/L [facility] Total Protein 8.4(H) 6.5 - 8.0 g/dL [facility] Albumin Level 4.9 3.5 - 5.0 g/dL [facility] Alkaline Phosphatase 50 39 - 117 U/L [facility] 12/16/2024 1:25 PM EST 12/16/2024 1:30 PM EST Generic External Data Provider LAB BLOOD ORDERAB LES Final Result Performing Organization Address City/[facility] Co de Phone Number [facility] [address] [place] [phone] * Hepatitis C Antibody with Reflex to HCV, RNA, Quantitative, Real-Time PCR (04/16/2024 9:38 AM EST) Hepatitis C Antibody Nonreactive Nonreactive [facility] Comment:Antibodies to HCV no t detected; does not exclude early acuteHCV infection. Blood Venous blood specimen / Unknown 04/16/2024 9:38 AM EST 04/16/2024 11:36 AM EST Melba Tamayo NP LAB BLOOD ORDERABLES Final Resu lt [facility] [address] [place] [phone] [phone] * HIV-1/2 Antigen and Antibodies, Fourth Generation, with Reflexes (04/16/2024 9:38 AM EST) HIV AB/AG Nonreactive Nonreactive [facility] Comment:HIV-1 p24 Ag and/or HIV-1/HIV-2 Ab not detected.A test result that is nonreactive does not exclude thepossibility of exposure to or infection with HIV-1 and/orHIV-2. Nonreactive results in this assay for individualswith prior exposure to HIV-1 and/or HIV-2 may be due toantigen and antibody levels that are below the limit ofdetection of this assay.The GMI HIV Ag/Ab Combo assay result andsupplemental assay results should be interpreted inconjunction with the patient's clinical presentation,history and other laboratory results. If the results areinconsistent with clinical evidence, additional testing issuggested to confirm the result. Blood Venous blood specimen / Unknown 04/16/2024 9:38 AM EST 04/16/2024 11:36 AM EST Melba Tamayo VOCATIONAL ADVISER LAB BLOOD ORDERABLES Final Resu lt Performing Organization Address [facility]/ZIP Co de Phone Number [facility] [address] [place] [phone] * (ABNORMAL) Lipid Panel, Standard (04/16/2024 9:38 AM EST) Triglycerides 87 <150 mg/dL [facility] Comment:Desirable Triglyceri de: less than 150 mg/dLBorderline High Triglyceride 150-199 mg/dLHigh Triglyceride: 200-499 mg/dLVery High Triglyceride: greater than or equal to 5OO mg/dL Cholesterol 166 <200 mg/dL [facility] Comment:Desirable Cholestero l: less than 200 mg/dLBorderline High Cholesterol: 200-239 mg/dLHigh Cholesterol: greater than 239 mg/dL LDL Cholesterol Calculated 102(H) <100 mg/dL [facility] Comment:Desirable LDL: less than 100 mg/dLNear Optimal/Above Optimal LDL: 110- 129 mg/dLBorderline High LDL: 130-159 mg/dLHigh LDL: 160-189 mg/dLVery High LDL: greater than or equal to 190 mg/dL HDL Cholesterol 47 >40 mg/dL [facility] Comment:Desirable HDL: great er than 40 mg/dL Note: This HDL assay may give artificially low results in patients with liver disease. Blood Venous blood specimen / Unknown 04/16/2024 9:38 AM EST 04/16/2024 11:41 AM EST us Melba Tamayo NP LAB BLOOD ORDERABLES Final Resu lt [facility] [address] [place] [phone] from Last 3 Months or Most Recently Relevant to Health Maintenance Insurance [facility] C3 Care Teams Maxillofacial Pathology Relationship Specialty Start Date End Date Melba Tamayo NP [address] [place] [address] PCP - General Family Medicine 04/15/24
--- OUTSIDE RECORDS SUMMARY | 2024-12-16 18:48 | XMS_ITS | Encounter Summary ---
Author Organization [employer] Address [address] [facility] [address] [place] [address] Care Team Providers Care Grease Maker Head Name Role Phone Melba Tamayo DIRECTOR OF CLINICAL APPLICATIONS Primary Care Provider [phone] Encounter Details Date Type Department Care Team ([facility] Contact Info) Description 12/16/2024 Orders Only GENERIC EXTERNAL DATA DEPARTMENT Provider, Generic External Data Social History Tobacco Use Types Packs/Day Years [...] as of this encounter Plan of Treatment Not on file documented as of this encounter Procedures Procedure Name Priority Date/Time Associated Diagnosis Comments INFLUENZA A B2 ID NOW (Graphenea) Routine 12/16/2024 1:25 PM EST STREP A NUCLEIC ACID Routine 12/16/2024 1:25 PM EST COVID-19 ID NOW (Graphenea) Routine 12/16/2024 1:25 PM EST URINALYSIS, COMPLETE, WITH REFLEX TO CULTURE Routine 12/16/2024 1:25 PM EST CBC WITH AUTO DIFFERENTIAL Routine 12/16/2024 1:25 PM EST HCG, QL, URINE Routine 12/16/2024 1:25 PM EST HCG, TOTAL, QN Routine 12/16/2024 1:25 PM EST LIPASE Routine 12/16/2024 1:25 PM EST COMPREHENSIVE METABOLIC PANEL Routine 12/16/2024 1:25 PM EST documented in this encounter Results * hCG, Total, Quantitative (12/16/2024 1:25 PM EST) HCG Quantitative 65,565 mIU/mL [facility] Comment:Weeks post LMP Appro ximate hCG(Last Menstrual Period) Range (mIU/ml)3 - 4 weeks 9 - 1304 - 5 weeks 75 - 2,6005 - 6 weeks 850 - 20,8006 - 7 weeks 4000 - 100,2007 - 12 weeks 11,500 - 289,55119 - 16 weeks 18,300 - 137,04729 - 29 weeks (2nd trimester) 1,400 - 53,91039 - 41 weeks (3rd trimester) 940 - 60,000The Smith B- hCG assay is used for the early detection ofpregnancy; it cannot be used to diagnose any conditionunrelated to . If a B-hCG level is not supportedby the clinical evidence, results should be confirmed by analternative method (qualitative urine hCG, for example). 12/16/2024 1:25 PM EST 12/16/2024 1:30 PM EST Generic External Data Provider LAB BLOOD ORDERAB LES Final Result Performing Organization Address [facility]/ZIP Co de Phone Number [facility] [address] [place] [phone] * Lipase (12/16/2024 1:25 PM EST) Pathologist [facility] Lipase 58 8 - 78 U/L [facility] 12/16/2024 1:25 PM EST 12/16/2024 1:30 PM EST Podclass External Data Provider LAB BLOOD ORDERAB LES Final Result Performing Organization Address [facility] Co de Phone Number [facility] [address] [place] [address] [phone] * (ABNORMAL) Comprehensive Metabolic Panel (12/16/2024 1:25 PM EST) [facility] Sodium 136 135 - 145 mmol/L [facility] Potassium 4.2 3.3 - 5.1 mmol/L [facility] Chloride 106 96 - 108 mmol/L [facility] Carbon Dioxide 27 22 - 29 mmol/L [facility] Anion Gap 7(L) 12 - 20 [facility] Urea Nitrogen (BUN) 10 9 - 16 mg/dL [facility] Creatinine, Serum 0.58 0.5 - 1.4 mg/dL [facility] Creatinine Clr Calc Pharmacy 136.3 [facility] Comment:Provided height and weight: 160.02 cm,65.771 kg.eGFR (calculated from the MDRD study equation) and eCrCl(calculated from the Cockcroft-Gault equation) are based ondifferent parameters and may not yield comparable results.If eCrCl result is absurd, please check patient'sheight/weight. Estimated Glomerular Filt Rate >60 [facility] Comment:Chronic Kidney Disea se: Estimated GFR < 60 mL/min/1.04s0Ybwevn Kidney Disease: Estimated GFR < 15 mL/min/1.73m2 Glucose 82 60 - 115 mg/dL [facility] Calcium 9.8 8.4 - 10.2 mg/dL [facility] Bilirubin, Total 0.5 0.0 - 1.0 mg/dL [facility] Aspartate Amino Transferase 39(H) 5 - 31 U/L [facility] Alanine Aminotransferase 17 0 - 31 U/L [facility] Total Protein 8.4(H) 6.5 - 8.0 g/dL [facility] Albumin Level 4.9 3.5 - 5.0 g/dL [facility] Alkaline Phosphatase 50 39 - 117 U/L [facility] 12/16/2024 1:25 PM EST 12/16/2024 1:30 PM EST us Generic External Data Provider LAB BLOOD ORDERAB LES Final Result [facility] [address] [place] [phone] * COVID-19 ID NOW (SMITH) (12/16/2024 1:25 PM EST) IDNOW SERIAL# [id number] [facility] COVID-19 TEST Negative Negative [facility] COVID-19 NOTE See Note [facility] Comment: Results are for the identification of SARS-CoV2 RNA. TheSARS-CoV2 RNA is generally detectable in respiratory samplesduring the acute phase of infection. Positive results areindicative of the presence of SARS-CoV-2 RNA; clinicalcorrelation with patient history and other diagnosticinformation is necessary to determine patient infectionstatus. Positive results do not rule out bacterial infectionor co- infection with other viruses.Testing facilities within the [facility] and [facility] are required to report all positive results [...] use by authorized laboratories.Testing performed on the Smith ID NOW utilizing NAAT. 12/16/2024 1:25 PM EST 12/16/2024 1:30 PM EST us Generic External Data Provider LAB MOLECULAR JEANNIE GNOSTICS ORDERABLES Final Result [facility] [address] [place] [address] [phone] * Influenza A B2 ID NOW (Smith) (12/16/2024 1:25 PM EST) IDNOW SERIAL# [id number] [facility] Influenza A Negative Negative [facility] Influenza B2 Negative Negative [facility] Influenza A B2 Note See Note [facility] Comment:The Smith ID NOW In [...] LAB MICROBIOLOGY - GENERAL ORDERABLES Final Result [facility] [address] [place] [phone] * (ABNORMAL) Urinalysis, Complete, with Reflex to Culture (12/16/2024 1:25 PM EST) Color Urine Yellow [facility] Appearance Urine Clear [facility] PH 6.5 5.0 - 9.0 [facility] Glucose Urine UA Negative Negative mg/dL [facility] Urine Blood Negative Negative [facility] Specific [place] - Urine 1.020 1.005 - 1.025 [facility] Urine Protein Negative Neg-Trace mg/dL [facility] Urine Ketones 15 Negative mg/dL [facility] Nitrite Urine Negative Negative [facility] Leukocyte Esterase Urine Trace(A) Negative [facility] RBC Urine 0-2 0 - 2 /HPF [facility] Urine WBC 0-5 0 - 5 /HPF [facility] Urine Squamous Epithelial Cell 11-20 0 - 2 /HPF [facility] Urine Bacteria 1+ None Seen [facility] Hyaline Casts, Urine 0-2 0 - 2 /LPF [facility] 12/16/2024 1:25 PM EST 12/16/2024 1:29 PM EST Narrative [facility] - 12/16/2024 1:49 PM EST [id number], Clean Catch Generic External Data Provider LAB URINE ORDERAB LES Final Result Performing Organization Address [facility] de Phone Number [facility] [address] [place] [address] [phone] * Strep A Nucleic Acid (12/16/2024 1:25 PM EST) IDNOW SERIAL# [id number] [facility] Strep A Nucleic Acid Negative Negative [facility] Comment:All test results mus t [...] GENERAL ORDERABLES Final Result Performing Organization Address [facility] de Phone Number [facility] [address] [place] [address] [phone] * (ABNORMAL) HCG, Qualitative, Urine (12/16/2024 1:25 PM EST) Pathologist [facility] Urine POSITIVE(A ) NEGATIVE [facility] 12/16/2024 1:25 PM EST 12/16/2024 1:29 PM EST Generic External Data Provider LAB URINE ORDERAB LES Final Result Performing Organization Address [facility] de Phone Number [facility] [address] [place] [address] [phone] * (ABNORMAL) CBC auto differential (12/16/2024 1:25 PM EST) [facility] White Blood Count 10.3 4.8 - 10.8 X10*3/uL [facility] Red Blood Count 4.68 4.20 - 5.50 X10*6/uL [facility] Hemoglobin 13.5 12.0 - 16.0 g/dl [facility] Hematocrit 40.3 37.0 - 47.0 % [facility] Mean Corpuscular Volume 86.1 80.0 - 98.0 fL [facility] Mean Corpuscular Hemoglobin 28.8 27.0 - 33.0 pg [facility] Mean Corpuscular HGB Conc 33.5 31.0 - 35.0 g/dl [facility] Red Cell Distribution Width 12.2 11.0 - 16.0 % [facility] Platelet Count 265 160 - 400 X10*3/uL [facility] Mean Platelet Volume 10.1 9.4 - 12.3 fL [facility] Neutrophils Percent Auto 69.1 45 - 73 % [facility] Imm Gran Pct Auto 0.4 0.0 - 0.4 % [facility] Lymphocytes Percent Auto 21.3 20 - 40 % [facility] Monocytes Percent Auto 8.1 2 - 11 % [facility] Eosinophils Percent Auto 0.6 0 - 4 % [facility] Basophils Percent Auto 0.5 0 - 2 % [facility] NRBC Pct Auto 0.0 0.0 - 0.2 /100WBC [facility] Neutrophils Absolute Auto 7.1 2.0 - 8.3 x10*3/uL [facility] Imm Gran Abs Auto 0.04(H) 0.00 - 0.03 X10*3/uL [facility] Lymphocytes Absolute Auto 2.2 1.2 - 4.9 X10*3/uL [facility] Monocytes Absolute Auto 0.8 0.1 - 1.2 X10*3/uL [facility] Eosinophils Absolute Auto 0.1 0.0 - 0.4 X10*3/uL [facility] Basophils Absolute Auto 0.1 0.0 - 0.2 X10*3/uL [facility] NRBC Abs Auto 0.000 0.0 - 0.012 X10*3/uL [facility] 12/16/2024 1:25 PM EST 12/16/2024 1:30 PM EST us Generic External Data Provider LAB BLOOD ORDERAB LES Final Result [facility] [address] [place] [phone] documented in this encounter Visit Diagnoses Not on filedocumented in this encounter Additional Health Concerns Assessment Noted Time PHQ-9 Depression Total Score: 0 04/16/19 3:20 PM EST documented as of this encounter Care Teams Grease Maker Head Relationship Specialty Start Date End Date Melba Tamayo NP [address] [place] [phone] PCP - General Family Medicine 04/15/24 documented as of this encounter
== END 2024-12-16 18:04 | disposition home or self-care (01) ==
PROVIDERS: Physician Assistant; Emergency Provider Emergency Medicine; PCP Student in an Organized Health Care Education/Training Program
DX: O26.891 Other specified pregnancy related conditions, first trimester (principal); Z3A.01 Less than 8 weeks gestation of pregnancy; R10.9 Unspecified abdominal pain; R11.2 Nausea with vomiting, unspecified; N89.8 Other specified noninflammatory disorders of vagina; Z03.818 Encounter for observation for suspected exposure to other biological agents ruled out
CPT/HCPCS: 36415; 76801; 80053; 81001; 81025; 83690; 84702; 85025; 87502; 87635; 87651; 99284

== ENCOUNTER → 2024-12-16 14:14 | Outpatient (BNV) | payer MEDICAID, SELFPAY | PROVIDERS: Emergency Provider Emergency Medicine; PCP Student in an Organized Health Care Education/Training Program; Visit Provider Radiology Diagnostic Radiology | DX: O26.891 Other specified pregnancy related conditions, first trimester (principal); Z3A.01 Less than 8 weeks gestation of pregnancy | CPT/HCPCS: 76801 ==

== ENCOUNTER 2024-12-20 21:05 | Emergency (ER) | payer MEDICAID, SELFPAY ==
[2024-12-20 21:21] VITALS: BP 101/61; PULSE 79; RESP 16; TEMP 36.7; O2SAT 98; BMI 26.4
[2024-12-20 21:40] LABS: MANUAL DIFF FLAG NO
[2024-12-20 21:42] LABS: Hematocrit 38.3 % (37.0-47.0); Hemoglobin 12.6 g/dl (12.0-16.0); Imm Gran Abs Auto 0.02 X10*3/uL (0.00-0.03); Imm Gran Pct Auto 0.2 % (0.0-0.4); Lymphocytes Absolute Auto 2.7 X10*3/uL (1.2-4.9); Mean Corpuscular HGB Conc 32.9 g/dl (31.0-35.0); Mean Corpuscular Hemoglobin 28.5 pg (27.0-33.0); Mean Corpuscular Volume 86.7 fL (80.0-98.0); NRBC Abs Auto 0.000 X10*3/uL (0.0-0.012); NRBC Pct Auto 0.0 /100WBC (0.0-0.2); Platelet Count 235 X10*3/uL (160-400); Red Blood Count 4.42 X10*6/uL (4.20-5.50); White Blood Count 8.5 X10*3/uL (4.8-10.8)
[2024-12-20 22:07] LABS: Alanine Aminotransferase 15 U/L (0-31); Albumin Level 4.5 g/dL (3.5-5.0); Alkaline Phosphatase 40 U/L (39-117); Anion Gap 14 (12-20); Aspartate Amino Transferase 53 U/L (5-31); Blood Urea Nitrogen 11 mg/dL (9-16); Calcium 9.4 mg/dL (8.4-10.2); Carbon Dioxide 21 mmol/L (22-29); Chloride 106 mmol/L (96-108); Creatinine Clr Calc Pharmacy 129.0; Estimated Glomerular Filt Rate > 60; Potassium 4.4 mmol/L (3.3-5.1); Sodium 137 mmol/L (135-145); Total Protein 8.1 g/dL (6.5-8.0)
--- OUTSIDE RECORDS SUMMARY | 2024-12-20 22:59 | XMS_ITS | Clinical Summary ---
Author Organization [employer] Address [address] [facility] [address] [place] [address] Care Team Providers Care Franchise Specialist Name Role Phone Melba Tamayo KONRAD Primary Care Provider [phone] Allergies No known active allergies Medications * This document contains information received from the source organization and may not represent a complete record from that organization. No known medications Active Problems Problem Noted Date Diagnosed Date Encounter to establish care 06/25/2024 Assessment & Plan (06/25/2024 12:53 PM EDT): -patient is new to [facility] -personal medical, surgical, and medication histories reviewed [...] recent move. Patient reported she moved from [place] a year and a half ago. When she was in [place] she had a therapist and psychiatrist. She's [...] and working out when she was in [place]. clinician engaged patient with active/reflective listening. Reviewed [...] Date Smoking Tobacco: Some Days Cigarettes 0.3 3.9 Started: 2021 Smokeless Tobacco: Never Alcohol Use [...] Name Priority Date/Time Associated Diagnosis Comments US OB <14 WEEKS FETUS Routine 12/16/2024 5:33 PM EST HCG, TOTAL, QN Routine 12/16/2024 [...] Recently Relevant to Health Maintenance Results * US OB <14 WEEKS FETUS (12/16/2024 5:33 PM EST) Anatomical Region Laterality Modality Ultrasound 12/16/2024 5:33 PM EST Narrative 12/16/2024 5:35 PM EST [place] [id number] Ultrasound Report Signed Patient: Thang Flower MR#: [id number] : 2000 Acct:[id number] Age/Sex: 24 / F ADM Date: 12/16/24 Loc: HO.ED Attending Dr: Ordering Physician: Kev Arceo Date of Service: 12/16/24 Procedure(s): US OB <= 14 weeks fetus Accession Number(s): [id number] cc: Kev Arceo; Ro Fuentes MD Reason for Exam: abdominal pain, vomitting CLINICAL HISTORY: abdominal pain, vomitting US OB 1st trimester transabdominal with Doppler Comparison: None provided Findings: Single intrauterine . MSD: 2.3 cm. CRL: 6.8 mm. EGA: 7 weeks, 0 days. ALEXX: August 04, 2025. Previously established gestational age: N/A. Normal yolk sac. Cardiac activity: 135 bpm. Subchorionic hypoechoic meniscus 1.3 x 0.2 cm. Right ovary 3 x 2.4 x 2.5 cm. Left ovary 1.7 x 3.3 x 1.7 cm. Normal color Doppler with arterial/venous spectral tracing of both ovaries. IMPRESSION: 1. Single intrauterine estimated 7 weeks, 0 days gestational age by today's ultrasound criteria. 2. No evidence of ovarian torsion. 3. Subchorionic hemorrhage suspected, 1.3 x 0.2 cm. Short-term follow-up is suggested. This document has been electronically signed by: Jones Braden MD on 12/16/2024 17:33:44 Dictated By: Jones Braden MD Signed By: <Electronically signed by Jones Braden MD in OV> 12/16/24 1734 DD/ 173 TD/TT: 12/16/24 173 Social Service Agency Director: Procedure Note Donotuseinterpreter, Image - 12/17/2024 [place] [address] Ultrasound Report Signed Patient: Kelvin Flower#: [id number] : 2000Acct:[id number] Age/Sex: 24 / FADM Date: 12/16/24 Loc: HO.ED Attending Dr: Ordering Physician: Kev Arceo Date of Service: 12/16/24 Procedure(s): US OB <= 14 weeks fetus Accession Number(s): [id number] cc: Kev Arceo; Ro Fuentes MD Reason for Exam: abdominal pain, vomitting CLINICAL HISTORY: abdominal pain, vomitting US OB 1st trimester transabdominal with Doppler Comparison: None provided Findings: Single intrauterine . MSD: 2.3 cm. CRL: 6.8 mm. EGA: 7 weeks, 0 days. ALEXX: August 04, 2025. Previously established gestational age: N/A. Normal yolk sac. Cardiac activity: 135 bpm. Subchorionic hypoechoic meniscus 1.3 x 0.2 cm. Right ovary 3 x 2.4 x 2.5 cm. Left ovary 1.7 x 3.3 x 1.7 cm. Normal color Doppler with arterial/venous spectral tracing of both ovaries. IMPRESSION: 1. Single intrauterine estimated 7 weeks, 0 days gestational age by today's ultrasound criteria. 2. No evidence of ovarian torsion. 3. Subchorionic hemorrhage suspected, 1.3 x 0.2 cm. Short-term follow-up is suggested. This document has been electronically signed by: Jones Braden MD on 12/16/2024 17:33:44 Dictated By: Jones Braden MD Signed By: <Electronically signed by Jones Barden MD in [place]> 12/16/24 1734 DD/ 173 TD/TT: 12/16/241732 Social Service Agency Director: us [facility] External Provider IMG OB US PROCEDURES Final Result * Influenza A B2 ID NOW (Smith) (12/16/2024 1:25 PM EST) IDNOW SERIAL# [id number] [facility] Influenza A Negative Negative [facility] Influenza B2 Negative Negative [facility] Influenza A B2 Note See Note [facility] Comment:The Smith ID NOW In fluenza [...] GENERAL ORDERABLES Final Result Performing Organization Address [facility] Co de Phone Number [facility] [address] [place] [phone] * Strep A Nucleic Acid (12/16/2024 1:25 PM EST) IDNOW SERIAL# [id number] [facility] Strep A Nucleic Acid Negative Negative [facility] Comment:All test results mus t be [...] GENERAL ORDERABLES Final Result Performing Organization Address [facility] Co de Phone Number [facility] [address] [place] [phone] * COVID-19 ID NOW (SMITH) (12/16/2024 1:25 PM EST) IDNOW SERIAL# [id number] [facility] COVID-19 TEST Negative Negative [facility] COVID-19 NOTE See Note [facility] Comment: Results are for the [...] the [facility] and [facility] center[facility] are required to report all positive results [...] use by authorized laboratories.Testing performed on the [employer] NOW utilizing NAAT. 12/16/2024 1:25 PM EST 12/16/2024 1:30 PM EST us Generic External Data Provider LAB MOLECULAR JEANNIE [employer] ORDERABLES Final Result [facility] [address] [place] [phone] * (ABNORMAL) Urinalysis, Complete, with Reflex to Culture (12/16/2024 1:25 PM EST) Color Urine Yellow [facility] Appearance Urine Clear [facility] PH 6.5 5.0 - 9.0 [facility] Glucose Urine UA Negative Negative mg/dL [facility] Urine Blood Negative Negative [facility] Specific [place] - Urine 1.020 1.005 - 1.025 [facility] Urine Protein Negative Neg-Trace mg/dL [facility] Urine Ketones 15 Negative mg/dL [facility] Nitrite Urine Negative Negative [facility] Leukocyte Esterase Urine Trace(A) Negative [facility] RBC Urine 0-2 0 - 2 /HPF [facility] Urine WBC 0-5 0 - 5 /HPF [facility] Urine Squamous Epithelial Cell 11-20 0 - 2 /HPF [facility] Urine Bacteria 1+ None Seen [facility] Hyaline Casts, Urine 0-2 0 - 2 /LPF [facility] 12/16/2024 1:25 PM EST 12/16/2024 1:29 PM EST Narrative [facility] - 12/16/2024 1:49 PM EST [id number], Clean [employer]atch us Generic External Data Provider LAB URINE ORDERAB LES Final Result [facility] [address] [place] [phone] * (ABNORMAL) CBC auto differential (12/16/2024 1:25 PM EST) White Blood Count 10.3 4.8 - 10.8 X10*3/uL [facility] Red Blood Count 4.68 4.20 - 5.50 X10*6/uL [facility] Hemoglobin 13.5 12.0 - 16.0 g/dl [facility] Hematocrit 40.3 37.0 - 47.0 % [facility] Mean Corpuscular Volume 86.1 80.0 - 98.0 fL [facility] Mean Corpuscular Hemoglobin 28.8 27.0 - 33.0 pg [facility] Mean Corpuscular HGB Conc 33.5 31.0 - 35.0 g/dl [facility] Red Cell Distribution Width 12.2 11.0 - 16.0 % [facility] Platelet Count 265 160 - 400 X10*3/uL [facility] Mean Platelet Volume 10.1 9.4 - 12.3 fL [facility] Neutrophils Percent Auto 69.1 45 - 73 % [facility] Imm Gran Pct Auto 0.4 0.0 - 0.4 % [facility] Lymphocytes Percent Auto 21.3 20 - 40 % [facility] Monocytes Percent Auto 8.1 2 - 11 % [facility] Eosinophils Percent Auto 0.6 0 - 4 % [facility] Basophils Percent Auto 0.5 0 - 2 % [facility] NRBC Pct Auto 0.0 0.0 - 0.2 /100WBC [facility] Neutrophils Absolute Auto 7.1 2.0 - 8.3 x10*3/uL [facility] Imm Gran Abs Auto 0.04(H) 0.00 - 0.03 X10*3/uL [facility] Lymphocytes Absolute Auto 2.2 1.2 - 4.9 X10*3/uL [facility] Monocytes Absolute Auto 0.8 0.1 - 1.2 X10*3/uL [facility] Eosinophils Absolute Auto 0.1 0.0 - 0.4 X10*3/uL [facility] Basophils Absolute Auto 0.1 0.0 - 0.2 X10*3/uL [facility] NRBC Abs Auto 0.000 0.0 - 0.012 X10*3/uL [facility] 12/16/2024 1:25 PM EST 12/16/2024 1:30 PM EST Generic External Data Provider LAB BLOOD ORDERAB LES Final Result Performing Organization Address [facility]/ZIP Co de Phone Number [facility] [address] [place] [phone] * (ABNORMAL) HCG, Qualitative, Urine (12/16/2024 1:25 PM EST) Urine POSITIVE(A ) NEGATIVE [facility] 12/16/2024 1:25 PM EST 12/16/2024 1:29 PM EST Generic External Data Provider LAB URINE ORDERAB LES Final Result Performing Organization Address [facility] de Phone Number [facility] [address] [place] [phone] * hCG, Total, Quantitative (12/16/2024 1:25 PM EST) HCG Quantitative 65,565 mIU/mL [facility] Comment:Weeks post LMP Appro ximate hCG(Last Menstrual Period) Range (mIU/ml)3 - 4 weeks 9 - 1304 - 5 weeks 75 - 2,6005 - 6 weeks 850 - 20,8006 - 7 weeks 4000 - 100,2007 - 12 weeks 11,500 - 289,45890 - 16 weeks 18,300 - 137,70856 - 29 weeks (2nd trimester) 1,400 - 53,65154 - 41 weeks (3rd trimester) 940 - [...] ORDERAB LES Final Result Performing Organization Address [facility] Co de Phone Number [facility] [address] [place] [phone] * Lipase (12/16/2024 1:25 PM EST) Lipase 58 8 - 78 U/L [facility] 12/16/2024 1:25 PM EST 12/16/2024 1:30 PM EST [employer] External Data Provider LAB BLOOD ORDERAB LES Final Result Performing Organization Address [facility] Phone Number [facility] [address] [place] [phone] * (ABNORMAL) Comprehensive Metabolic Panel (12/16/2024 1:25 PM EST) Sodium 136 135 - 145 mmol/L [facility] Potassium 4.2 3.3 - 5.1 mmol/L [facility] Chloride 106 96 - 108 mmol/L [facility] Carbon Dioxide 27 22 - 29 mmol/L [facility] Anion Gap 7(L) 12 - 20 [facility] Urea Nitrogen (BUN) 10 9 - 16 mg/dL [facility] Creatinine, Serum 0.58 0.5 - 1.4 mg/dL [facility] Creatinine Clr Calc Pharmacy 136.3 [facility] Comment:Provided height and weight: 160.02 cm,65.771 kg.eGFR (calculated from the MDRD study equation) and eCrCl(calculated from the Cockcroft-Gault equation) are based ondifferent parameters and may not yield comparable results.If eCrCl result is absurd, please check patient'sheight/weight. Estimated Glomerular Filt Rate >60 [facility] Comment:Chronic Kidney Disea se: Estimated GFR < 60 mL/min/1.44k5Abuedh Kidney Disease: Estimated GFR < 15 mL/min/1.73m2 Glucose 82 60 - 115 mg/dL [facility] Calcium 9.8 8.4 - 10.2 mg/dL [facility] Bilirubin, Total 0.5 0.0 - 1.0 mg/dL [facility] Aspartate Amino Transferase 39(H) 5 - 31 U/L [facility] Alanine Aminotransferase 17 0 - 31 U/L [facility] Total Protein 8.4(H) 6.5 - 8.0 g/dL [facility] Albumin Level 4.9 3.5 - 5.0 g/dL [facility] Alkaline Phosphatase 50 39 - 117 U/L [facility] 12/16/2024 1:25 PM EST 12/16/2024 1:30 PM EST us Generic External Data Provider LAB BLOOD ORDERAB LES Final Result [facility] [address] [place] [phone] * Hepatitis C Antibody with Reflex to HCV, RNA, Quantitative, Real-Time PCR (04/16/2024 9:38 AM EST) Hepatitis C Antibody Nonreactive Nonreactive [facility] Comment:Antibodies to HCV no t detected; does not exclude early acuteHCV infection. Blood Venous blood specimen / Unknown 04/16/2024 9:38 AM EST 04/16/2024 11:36 AM EST Melba Appram [employer]ACK P[employer]ACH[employer] LAB BLOOD ORDERABLES Final Resu lt Performing Organization Address [facility]/ZIP Co de Phone Number [facility] [address] [place] [phone] * HIV-1/2 Antigen and Antibodies, Fourth Generation, with Reflexes (04/16/2024 9:38 AM EST) HIV AB/AG Nonreactive Nonreactive [facility] Comment:HIV-1 p24 Ag and/or HIV-1/HIV-2 Ab not detected.A test result that is nonreactive does not exclude thepossibility of exposure to or infection with HIV-1 and/orHIV-2. Nonreactive results in this assay for individualswith prior exposure to HIV-1 and/or HIV-2 may be due toantigen and antibody levels that are below the limit ofdetection of this assay.The [email or web address] HIV Ag/Ab Combo assay result andsupplemental assay results should be interpreted inconjunction with the patient's clinical presentation,history and other laboratory results. If the results areinconsistent with clinical evidence, additional testing issuggested to confirm the result. Blood Venous blood specimen / Unknown 04/16/2024 9:38 AM EST 04/16/2024 11:36 AM EST Melba Roni [employer] LAB BLOOD ORDERABLES Final Resu lt Performing Organization Address [facility] Co de Phone Number [facility] [address] [place] [phone] * (ABNORMAL) Lipid Panel, Standard (04/16/2024 9:38 AM EST) Triglycerides 87 <150 mg/dL [facility] Comment:Desirable Triglyceri de: less than 150 mg/dLBorderline High Triglyceride 150-199 mg/dLHigh Triglyceride: 200-499 mg/dLVery High Triglyceride: greater than or equal to 5OO mg/dL Cholesterol 166 <200 mg/dL [facility] Comment:Desirable Cholestero l: less than 200 mg/dLBorderline High Cholesterol: 200-239 mg/dLHigh Cholesterol: greater than 239 mg/dL LDL Cholesterol Calculated 102(H) <100 mg/dL [facility] Comment:Desirable LDL: less than 100 mg/dLNear Optimal/Above Optimal LDL: 110- 129 mg/dLBorderline High LDL: 130-159 mg/dLHigh LDL: 160-189 mg/dLVery High LDL: greater than or equal to 190 mg/dL HDL Cholesterol 47 >40 mg/dL [facility] Comment:Desirable HDL: great er than 40 mg/dL Note: This HDL assay may give artificially low results in patients with liver disease. Blood Venous blood specimen / Unknown 04/16/2024 9:38 AM EST 04/16/2024 11:41 AM EST us Melba Tamayo NP LAB BLOOD ORDERABLES Final Resu lt [facility] [address] [place] [phone] from Last 3 Months or Most Recently Relevant to Health Maintenance Insurance [facility] Care Teams Franchise Specialist Relationship Specialty Start Date End Date Melba Tamayo NP [address] [place] [address] PCP - General Family Medicine 04/15/24
--- OUTSIDE RECORDS SUMMARY | 2024-12-20 22:59 | XMS_ITS | Encounter Summary ---
Author Organization [employer] Address [address] [facility] [address] [place] [address] Care Team Providers Care Storage Worker Name Role Phone Melba Tamayo CONTINUOUS CONVEYOR SCREEN DRIER Primary Care Provider [phone] Encounter Details Date Type Department Care Team ([facility] Contact Info) Description 12/16/2024 Orders Only GENERIC [...] WEEKS FETUS Routine 12/16/2024 5:33 PM EST INFLUENZA A B2 ID NOW ([facility]) Routine 12/16/2024 1:25 PM EST STREP A NUCLEIC ACID Routine 12/16/2024 1:25 PM EST COVID-19 ID NOW ([facility]) Routine 12/16/2024 1:25 PM EST URINALYSIS, COMPLETE, WITH REFLEX TO CULTURE Routine 12/16/2024 1:25 PM EST CBC WITH AUTO DIFFERENTIAL Routine 12/16/2024 1:25 PM EST HCG, QL, URINE Routine 12/16/2024 1:25 PM EST HCG, TOTAL, QN Routine 12/16/2024 1:25 PM EST LIPASE Routine 12/16/2024 1:25 PM EST COMPREHENSIVE METABOLIC PANEL Routine 12/16/2024 1:25 PM EST documented in this encounter Results * US OB <14 WEEKS FETUS (12/16/2024 5:33 PM EST) Anatomical Region Laterality Modality Ultrasound 12/16/2024 5:33 PM EST Narrative 12/16/2024 5:35 PM EST [address] [address] Ultrasound Report Signed Patient: Thang Flower MR#: [id number] : 2000 Acct:[id number] Age/Sex: 24 / F ADM Date: 12/16/24 Loc: HO.ED Attending Dr: Ordering Physician: Kev Arceo Date of Service: 12/16/24 Procedure(s): US OB <= 14 weeks fetus Accession Number(s): [id number] cc: Kev Arceo; Ro Fuentes MD Reason [...] Braden MD in OV> 12/16/24 1734 DD/ 32 TD/TT: 12/16/241732 Anatomic Pathology Manager: Procedure Note Donotuseinterpreter, Image - 12/17/2024 [place] [address] Ultrasound Report Signed Patient: Kelvin Flower#: [id number] : 2000Acct:[id number] Age/Sex: 24 / FADM Date: 12/16/24 Loc: HO.ED Attending Dr: Ordering Physician: Kev Arceo Date of Service: 12/16/24 Procedure(s): US OB <= 14 weeks fetus Accession Number(s): [id number] cc: Kev Arceo; Ro Fuentes MD Reason [...] signed by Jones Braden MD in OV> 12/16/241733 DD/ 32 TD/TT: 12/16/241732 Anatomic Pathology Manager: us [facility] External Provider IMG OB US PROCEDURES Final Result * hCG, Total, Quantitative (12/16/2024 1:25 PM EST) HCG Quantitative 65,565 mIU/mL [facility] Comment:Weeks post LMP Appro ximate hCG(Last Menstrual Period) Range (mIU/ml)3 - 4 weeks 9 - 1304 - 5 weeks 75 - 2,6005 - 6 weeks 850 - 20,8006 - 7 weeks 4000 - 100,2007 - 12 weeks 11,500 - 289,36759 - 16 weeks 18,300 - 137,31471 - 29 weeks (2nd trimester) 1,400 - 53,59395 - 41 weeks (3rd trimester) 940 - [...] ORDERAB LES Final Result Performing Organization Address [facility]/ZIP Co de Phone Number [facility] [address] [place] [phone] * Lipase (12/16/2024 1:25 PM EST) Pathologist [facility] Lipase 58 8 - 78 U/L [facility] 12/16/2024 1:25 PM EST 12/16/2024 1:30 PM EST Generic External Data Provider LAB BLOOD ORDERAB LES Final Result Performing Organization Address [facility]/ZIP Co de Phone Number [facility] [address] [place] [phone] * (ABNORMAL) Comprehensive Metabolic Panel (12/16/2024 1:25 PM EST) Pathologist [facility] Sodium 136 135 - 145 mmol/L [facility] Potassium 4.2 3.3 - 5.1 mmol/L [facility] Chloride 106 96 - 108 mmol/L [facility] Carbon Dioxide 27 22 - 29 mmol/L [facility] Anion Gap 7(L) 12 - 20 [facility] Urea Nitrogen (BUN) 10 9 - 16 mg/dL [facility] Creatinine, Serum 0.58 0.5 - 1.4 mg/dL [facility] Creatinine Clr Calc Pharmacy 136.3 [facility] Comment:Provided height and weight: 160.02 cm,65.771 kg.eGFR (calculated from the MDRD study equation) and eCrCl(calculated from the Cockcroft-Gault equation) are based ondifferent parameters and may not yield comparable results.If eCrCl result is absurd, please check patient'sheight/weight. Estimated Glomerular Filt Rate >60 [facility] Comment:Chronic Kidney Disea se: Estimated GFR < 60 mL/min/[id number] Kidney Disease: Estimated GFR < 15 mL/min/1.73m2 Glucose 82 60 - 115 mg/dL [facility] Calcium 9.8 8.4 - 10.2 mg/dL [facility] Bilirubin, Total 0.5 0.0 - 1.0 mg/dL [facility] Aspartate Amino Transferase 39(H) 5 - 31 U/L [facility] Alanine Aminotransferase 17 0 - 31 U/L [facility] Total Protein 8.4(H) 6.5 - 8.0 g/dL [facility] Albumin Level 4.9 3.5 - 5.0 g/dL [facility] Alkaline Phosphatase 50 39 - 117 U/L [facility] 12/16/2024 1:25 PM EST 12/16/2024 1:30 PM EST us Generic External Data Provider LAB BLOOD ORDERAB LES Final Result [facility] [address] [place] [phone] * COVID-19 ID NOW (SMITH) (12/16/2024 1:25 PM EST) IDNOW SERIAL# [id number] [facility] COVID-19 TEST Negative Negative [facility] COVID-19 NOTE See Note [facility] Comment: Results are for the identification of SARS-CoV2 RNA. TheSARS-CoV2 RNA is generally detectable in respiratory samplesduring the acute phase of infection. Positive results areindicative of the presence of SARS-CoV-2 RNA; clinicalcorrelation with patient history and other diagnosticinformation is necessary to determine patient infectionstatus. Positive results do not rule out bacterial infectionor co- infection with other viruses.Testing facilities within the [facility] and [facility] are required to report all positive results [...] PM EST Generic External Data Provider LAB MOLECULAR JEANNIE GNOSTICS ORDERABLES Final Result [facility] [address] [place] [phone] * Influenza A B2 ID NOW (Smith) (12/16/2024 1:25 PM EST) IDNOW SERIAL# [id number] [facility] Influenza A Negative Negative [facility] Influenza B2 Negative Negative [facility] Influenza A B2 Note See Note [facility] Comment:The Smith ID NOW In [...] LAB MICROBIOLOGY - GENERAL ORDERABLES Final Result [facility] [address] [place] [phone] * (ABNORMAL) Urinalysis, Complete, with Reflex to Culture (12/16/2024 1:25 PM EST) Color Urine Yellow [facility] Appearance Urine Clear [facility] PH 6.5 5.0 - 9.0 [facility] Glucose Urine UA Negative Negative mg/dL [facility] Urine Blood Negative Negative [facility] Specific [place] - Urine 1.020 1.005 - 1.025 [facility] Urine Protein Negative Neg-Trace mg/dL [facility] Urine Ketones 15 Negative mg/dL [facility] Nitrite Urine Negative Negative [facility] Leukocyte Esterase Urine Trace(A) Negative [facility] RBC Urine 0-2 0 - 2 /HPF [facility] Urine WBC 0-5 0 - 5 /HPF [facility] Urine Squamous Epithelial Cell 11-20 0 - 2 /HPF [facility] Urine Bacteria 1+ None Seen [facility] Hyaline Casts, Urine 0-2 0 - 2 /LPF [facility] 12/16/2024 1:25 PM EST 12/16/2024 1:29 PM EST Narrative [facility] - 12/16/2024 1:49 PM EST [id number], Clean Catch Generic External Data Provider LAB URINE ORDERAB LES Final Result Performing Organization Address [facility] de Phone Number [facility] [address] [place] [phone] * Strep A Nucleic Acid (12/16/2024 1:25 PM EST) Pathologist [facility] IDNOW SERIAL# [id number] [facility] Strep A Nucleic Acid Negative Negative [facility] Comment:All test results mus t [...] GENERAL ORDERABLES Final Result Performing Organization Address [facility] de Phone Number [facility] [address] [place] [phone] * (ABNORMAL) HCG, Qualitative, Urine (12/16/2024 1:25 PM EST) Pathologist [facility] Urine POSITIVE(A ) NEGATIVE [facility] 12/16/2024 1:25 PM EST 12/16/2024 1:29 PM EST Generic External Data Provider LAB URINE ORDERAB LES Final Result Performing Organization Address [facility] de Phone Number [facility] [address] [place] [phone] * (ABNORMAL) CBC auto differential (12/16/2024 1:25 PM EST) [facility] White Blood Count 10.3 4.8 - 10.8 X10*3/uL [facility] Red Blood Count 4.68 4.20 - 5.50 X10*6/uL [facility] Hemoglobin 13.5 12.0 - 16.0 g/dl [facility] Hematocrit 40.3 37.0 - 47.0 % [facility] Mean Corpuscular Volume 86.1 80.0 - 98.0 fL [facility] Mean Corpuscular Hemoglobin 28.8 27.0 - 33.0 pg [facility] Mean Corpuscular HGB Conc 33.5 31.0 - 35.0 g/dl [facility] Red Cell Distribution Width 12.2 11.0 - 16.0 % [facility] Platelet Count 265 160 - 400 X10*3/uL [facility] Mean Platelet Volume 10.1 9.4 - 12.3 fL [facility] Neutrophils Percent Auto 69.1 45 - 73 % [facility] Imm Gran Pct Auto 0.4 0.0 - 0.4 % [facility] Lymphocytes Percent Auto 21.3 20 - 40 % [facility] Monocytes Percent Auto 8.1 2 - 11 % [facility] Eosinophils Percent Auto 0.6 0 - 4 % [facility] Basophils Percent Auto 0.5 0 - 2 % [facility] NRBC Pct Auto 0.0 0.0 - 0.2 /100WBC [facility] Neutrophils Absolute Auto 7.1 2.0 - 8.3 x10*3/uL [facility] Imm Gran Abs Auto 0.04(H) 0.00 - 0.03 X10*3/uL [facility] Lymphocytes Absolute Auto 2.2 1.2 - 4.9 X10*3/uL [facility] Monocytes Absolute Auto 0.8 0.1 - 1.2 X10*3/uL [facility] Eosinophils Absolute Auto 0.1 0.0 - 0.4 X10*3/uL [facility] Basophils Absolute Auto 0.1 0.0 - 0.2 X10*3/uL [facility] NRBC Abs Auto 0.000 0.0 - 0.012 X10*3/uL [facility] 12/16/2024 1:25 PM EST 12/16/2024 1:30 PM EST us Generic External Data Provider LAB BLOOD ORDERAB LES Final Result [facility] [address] [place] [phone] documented in this encounter Visit Diagnoses Not on filedocumented in this encounter Additional Health Concerns Assessment Noted Time PHQ-9 Depression Total Score: 0 04/16/19 3:20 PM EST documented as of this encounter Care Teams Storage Worker Relationship Specialty Start Date End Date Melba Tamayo NP [address] [place] [phone] PCP - General Family Medicine 04/15/24 documented as of this encounter
[2024-12-21 00:22] VITALS: BP 98/59; PULSE 77; RESP 16; TEMP 36.8; O2SAT 100
--- NOTE | 2024-12-21 00:57 | ED_ITS ---
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 Verna Castro HPI Narrative: 24-year-old female, Turkish speaking, currently approximately 7 weeks based on FDLMP presenting with vaginal bleeding and cramping ongoing for the last 2 days. Denies vaginal discharge or dysuria. Has been having brown spotting in her underwear. No gush of bleeding. No reported fever. Describes abdominal cramping that feels like a period. She denies known sick contacts, cough or cold-type symptoms. Has been feeling well prior to this. Was here several days ago for abdominal discomfort and found out that she was . She did not have an ultrasound at that time. She has no care just yet. Related Data Previous Rx's ?Medication ?Instructions ?Recorded dicyclomine 20 mg tablet 20 mg PO BID PRN diarrhea #7 tabs 03/13/24 ondansetron HCl 4 mg tablet 4 mg PO Q8H PRN nausea and 03/13/24 vomiting #10 tabs ondansetron HCl 4 mg tablet 4 mg PO Q8H PRN nausea and 04/09/24 vomiting #10 tabs cyclobenzaprine 10 mg tablet 10 mg PO TID PRN muscle s pasm #20 05/15/24 tabs doxylamine succinate 25 mg tablet 25 mg PO TID 2 weeks #42 tabs 12/16/24 famotidine 20 mg tablet 20 mg PO BID 1 week #14 tabs 12/16/24 vitamins no.144-folic 2 tab PO DAILY 6 weeks #84 tabs 12/16/24 acid 400 mcg chewable tablet () pyridoxine (vitamin B6) 25 mg 25 mg PO TID nausea 2 we eks #42 12/16/24 tablet tabs Allergies Allergy/AdvReac Type Severity Reaction Status Date / Time No Known Allergies Allergy Verified 12/20/24 21:25 Review of Systems 2 Review of Systems: As per HPI, full review of systems performed and negative but for the above mentioned pertinent positives and negatives. PMFSH Social History Social History Smoked in Last 30 Days: No Use of substances other than those prescribed or required for medical reasons: No Advance Directives: No Advance Directives Information Provided: Yes Patient : Yes Physical Exam 2 Exam: Exam: GENERAL: Nontoxic-Appearing, appears uncomfortable. SKIN: Normal skin color for ethnicity, warm, dry, no rashes noted. HEENT: Normocephalic, atraumatic, no stridor, dry mucous membranes, dentition intact, EOMI, PERRLA. NECK: Soft, supple, full ROM, midline structures nontender, no step-offs, no deformities, no lymphadenopathy. CHEST: Heart regular rhythm, no murmurs, symmetric chest rise and fall. PULMONARY: Clear to auscultation bilaterally, diminished at the bases, no labored breathing, no wheezes/rhales/rhonchi. ABDOMINAL: Soft, nondistended, suprapubic tenderness to palpation with voluntary guarding, positive bowel sounds in all quadrants. : Deferred. MUSCULOSKELETAL: Normal tone, full range of motion, no deformities, no peripheral edema. NEURO: Alert and oriented x3, CN II through XII intact, equal strength and sensation bilateral upper and lower extremities, no focal neurologic deficits. PSYCHIATRIC: Flat affect, fluid speech, good eye contact and appropriate demeanor. Vital Signs: Vital Signs: Last Vital Signs Temp 97.3 F 12/21/24 02:11 Pulse 72 12/21/24 02:11 Resp 16 12/21/24 02:11 BP 104/66 12/21/24 02:11 Pulse Ox 99 12/21/24 02:11 O2 Del Method Room Air 12/21/24 02:11 BMI result Body Mass Index 26.4 Medical Decision Making Medical Decision Making [facility] Narrative: Patient presents today with chief complaint of vaginal bleeding. Differential diagnosis would include anemia, dysfunctional uterine bleeding, and if ectopic , threatened , missed , incomplete , among many others. Patient is not significantly anemic today. Bedside ultrasound shows normal movement with a heart tones of 156. Shins bleeding has stopped. Pain is well controlled after Tylenol. Discussed follow up with OBGYN. Given a referral. Using shared decision making, plan for discharge home to follow-up with primary care and/or specialist. Patient understands and agrees with plan for discharge. Discharged home in stable condition. Differential Diagnosis Differential Diagnoses: The differential diagnosis associated with the presentation includes (As above) Admission/Observation Consideration of admission/observation: Escalation of care including admission/observation considered Lab Data MDM Lab Attestation statement: I reviewed the patient's lab results. 12/20/24 21:32 12/20/24 21:32 Labs: Lab Results 12/20/24 12/21/24 Range/Units 21:32 00:55 WBC 8.5 (4.8-10.8) X10*3/uL RBC 4.42 (4.20-5.50) X10*6/uL Hgb 12.6 (12.0-16.0) g/dl Hct 38.3 (37.0-47.0) % MCV 86.7 (80.0-98.0) fL MCH 28.5 (27.0-33.0) pg MCHC 32.9 (31.0-35.0) g/dl RDW 12.0 (11.0-16.0) % Plt Count 235 (160-400) X10*3/uL MPV 10.8 (9.4-12.3) fL Immature Gran % (Auto) 0.2 (0.0-0.4) % Neut % (Auto) 56.9 (45-73) % Lymph % (Auto) 32.0 (20-40) % [place] % (Auto) 9.3 (2-11) % Eos % (Auto) 1.1 (0-4) % Baso % (Auto) 0.5 (0-2) % Lymph # (Auto) 2.7 (1.2-4.9) X10*3/uL [place] # (Auto) 0.8 (0.1-1.2) X10*3/uL Eos # (Auto) 0.1 (0.0-0.4) X10*3/uL Baso # (Auto) 0.0 (0.0-0.2) X10*3/uL Abs Immat Gran (auto) 0.02 (0.00-0.03) X10*3/uL Absolute Neuts (auto) 4.8 (2.0-8.3) x10*3/uL Absolute Nucleated RBC 0.000 (0.0-0.012) X10*3/uL Nucleated RBC % (auto) 0.0 (0.0-0.2) /100WBC Sodium 137 (135-145) mmol/L Potassium 4.4 (3.3-5.1) mmol/L Chloride 106 (96-108) mmol/L Carbon Dioxide 21 L (22-29) mmol/L Anion Gap 14 (12-20) BUN 11 (9-16) mg/dL Creatinine 0.62 (0.5-1.4) mg/dL Estim Creat Clear Calc 129.0 Estimated GFR > 60 Random Glucose 92 (60-115) mg/dL Calcium 9.4 (8.4-10.2) mg/dL Total Bilirubin 0.2 (0.0-1.0) mg/dL AST 53 H (5-31) U/L ALT 15 (0-31) U/L Alkaline Phosphatase 40 (39-117) U/L Total Protein 8.1 H (6.5-8.0) g/dL Albumin 4.5 (3.5-5.0) g/dL Beta HCG, Quant 43214 mIU/mL Urine Color Yellow Urine Appearance Clear Urine pH 6.0 (5.0-9.0) Ur Specific [place] 1.015 (1.005-1.025) Urine Protein Negative (Neg-Trace) mg/dL Urine Glucose (UA) Negative (Negative) mg/dL Urine Ketones Negative (Negative) mg/dL Urine Blood Negative (Negative) Urine Nitrite Negative (Negative) Ur Leukocyte Esterase Negative (Negative) Independent Historian Clinical information obtained from an independent historian. History obtained from or confirmed by: Spouse External Record Review External record reviewed: Inpatient record Prescription Management I considered prescription management with: Pain Medication Social Determinants Patient?s care significantly limited by Social Determinants of Health including: Other Social Determinant of Health Discharge Plan Discharge Clinical Impression: First trimester bleeding, Pelvic pain affecting in first trimester, antepartum Patient Disposition: Home, Self-Care Instructions: Threatened Miscarriage (ED), Abdominal Pain in (ED) Additional Instructions: Follow up with your OBGYN as soon as possible. Return to the emergency department sooner if you develop worsening bleed, worsening abdominal pain, fevers greater than 100?, any new symptom that concerns you. Do not put anything in the vagina or have intercourse until you see your OBGYN. Prescriptions: No Action cyclobenzaprine 10 mg tablet 10 mg PO TID PRN (Reason: muscle spasm) Qty: 20 0RF ondansetron HCl 4 mg tablet 4 mg PO Q8H PRN (Reason: nausea and vomiting) Qty: 10 0RF dicyclomine 20 mg tablet 20 mg PO BID PRN (Reason: diarrhea) Qty: 7 0RF ondansetron HCl 4 mg tablet 4 mg PO Q8H PRN (Reason: nausea and vomiting) Qty: 10 0RF 400 mcg tablet,chewable 2 tab PO DAILY 42 Days Qty: 84 0RF pyridoxine (vitamin B6) 25 mg tablet 25 mg PO TID 14 Days Qty: 42 0RF doxylamine succinate 25 mg tablet 25 mg PO TID 14 Days Qty: 42 0RF famotidine 20 mg tablet 20 mg PO BID 7 Days Qty: 14 0RF Interventions: ED Discharge Assessment Last Done: 12/21/24 02:11 Discharge Date/Time: 12/21/24 02:12 Print Language: Turkish
[2024-12-21 01:02] LABS: Appearance Urine Clear; Glucose Urine UA Negative (Negative); PH 6.0 (5.0-9.0); Specific Gravity - Urine 1.015 (1.005-1.025)
[2024-12-21 02:11] VITALS: BP 104/66; PULSE 72; RESP 16; TEMP 36.3; O2SAT 99
== END 2024-12-21 02:12 | disposition home or self-care (01) ==
PROVIDERS: Emergency Provider Emergency Medicine
DX: O20.9 Hemorrhage in early pregnancy, unspecified (principal); Z3A.01 Less than 8 weeks gestation of pregnancy; R10.22 Pelvic and perineal pain left side
CPT/HCPCS: 36415; 80053; 81003; 84702; 85025; 99283; 99284